=== PATIENT | female | born 1995 | race Caucasian/White ===

== ENCOUNTER 2024-09-25 19:26 | Inpatient (IN) | payer OTHER, SELFPAY ==
[2024-09-25 19:28] VITALS: BMI 35.8
[2024-09-25] MEDS: Lactated Ringers 1,000 ML 50 ML IV (19:45)
[2024-09-25 19:50] VITALS: BP 136/88; PULSE 82; RESP 18; TEMP 37.6
[2024-09-25 20:03] LABS: Absolute Lymphocyte Count 1.31 X10^3/uL (0.83-4.51); Absolute Neutrophil Count 6.1 X10^3/uL (2.0-7.7); Basophil# 0.01 X10^3/uL; Basophil% 0.1 % (0-1); Eosinophil# 0.04 X10^3/uL; Eosinophils% 0.5 % (0-5); Hematocrit 31.3 % (37-47); Hemoglobin 10.7 g/dL (12.0-15.0); Lymphocyte # 1.31 X10^3/ul (0.83-4.51); Lymphocyte % 16.2 % (19-41); Mean Corp Hgb Conc 34.2 g/dL (32-36); Mean Corpuscular Hgb 31.1 pg (27.0-32.0); Mean Platelet Vol. 11.6 fl (6.2-12.0); Monocyte% 7.4 % (0-10); NRBC Flagged by Analyzer 0 % (0-5); Neutrophil # 6.11 X10^3/uL (2.7-7.7); Neutrophil % 75.4 % (47-70); Platelet Count 177 K/mm3 (150-450); RBC Distribution Width CV 12.7 % (11.6-14.6); RBC Distribution Width SD 41.3 fl (35.1-43.9); Red Blood Count 3.44 M/mm3 (4.2-5.4); White Blood Count 8.1 K/mm3 (4.4-11.0)
--- NOTE | 2024-09-25 20:09 | PCM.HP.OB ---
HPI - General General Date of Admission: 09/25/24 Date of Service: 09/25/24 Chief Complaint: induction of labor HPI Narrative ALBERTO MARTINEZ, is a 29 F who presents @ 41 weeks presents for induction of labor. Denies ctx/vb/lof. Good FM. Maternal Data Information Final GENNA: 09/18/24 Gestational age: 41 0/7 weeks PFSH PFSH Home Medications ?Medication ?Instructions ?Recorded ?Last Taken ?Type aspirin 81 mg tablet,delayed 81 mg PO DAILY 09/25/24 09/25/24 15:30 History release vit no.95-ferrous 1 tab PO DAILY 09/25/24 09/25/24 15:30 History fumarate 28 mg-folic acid 800 mcg tablet () Allergy/AdvReac Type Severity Reaction Status Date / Time No Known Allergies Allergy Verified 09/25/24 19:47 Social History Smoking Status: Never smoker History Elective abortions Hx Para 0 Spontaneous abortions Hx # Term Pregnancies Ectopic pregnancies Hx # Pregnancies Multiple births # of living children ROS Constitutional Constitutional: Denies fatigue, fever(s) or malaise Eyes Eyes: Denies change in vision ENT HEENT: Denies dizziness or headache(s) Cardiovascular Cardiovascular: Denies chest pain, dyspnea or lightheadedness Respiratory/Chest Respiratory/Chest: Denies cough or dyspnea Gastrointestinal Gastrointestinal: Denies change in bowel habits Genitourinary Genitourinary: Denies burning urination or genital lesions Integumentary Integumentary: Denies rash Neurologic Neurologic: Denies confusion, dizziness, headache(s), numbness or weakness Vital Signs Vital Signs Vital Signs: 09/25/24 19:50 09/25/24 19:50 09/25/24 19:50 Temperature 99.7 F H Pulse Rate 82 Respiratory Rate Blood Pressure 136/88 H BP Systolic 136 BP Diastolic 88 09/25/24 19:50 Temperature Pulse Rate Respiratory Rate 18 Blood Pressure BP Systolic BP Diastolic Weight Weight: 83.2 kg Body Mass Index (BMI) 35.8 Physical Exam Narrative cervix 4/75/-2, mid position and medium consistency Const alert and no apparent distress General Appearance: cooperative HEENT normocephalic Resp normal respiratory effort Cardio regular rate GI soft to palpation GI Narrative: gravid, nontender, appropriate for gestational age Extremity no calf tenderness General Extremity: edema Skin no wounds Rashes: No rashes noted Psych activity/motor behavior normal Labs Labs Labs: Blood Type Pending Antibody Screen Pending Hct 31.3 % (37-47) L Hgb 10.7 g/dL (12.0-15.0) L Syphilis Total Ab Pending Assessment & Plan (1) 41 weeks gestation of : PLAN: EFW < 4500 gm and pelvis clinically adequate for vaginal delivery. Patient did not have dinner. Ok to have small meal now then start pitocin at 10 pm. May use routine pain control measures as needed (2) High-risk in third trimester: (3) Labor, failed, induction medical:
[2024-09-25 20:42] LABS: Syphilis Antibodies Nonreactive (Nonreactive)
[2024-09-25] MEDS: Oxytocin 15 Units/NS 250ml 15 UNITS/250 ML IV.SOLN 2 UNITS IV (22:07)
[2024-09-25 22:12] VITALS: BP 135/85; PULSE 72; RESP 18; TEMP 37.3
[2024-09-25 23:09] VITALS: RESP 16; TEMP 36.7
[2024-09-25 23:10] VITALS: BP 135/78; PULSE 76
[2024-09-26] VITALS (53 sets, daily range): BP systolic 99–149; BP diastolic 51–106; PULSE 70–181; RESP 13–20; TEMP 36–37.7; O2SAT 82–100
[2024-09-26 01:53] LABS: ROM Internal Control Test YES-OK TO RESULT pt. (Internal QC)
[2024-09-26 01:54] LABS: ROM Patient Test POSITIVE (Negative)
[2024-09-26 01:55] LABS: Record Kit Lot#, ROM+ K3358
[2024-09-26] MEDS: Lactated Ringers 1,000 ML 999 ML IV (02:10)
[2024-09-26] MEDS: Labetalol 200 MG Tablet PO (02:15)
[2024-09-26] MEDS: fentaNYL-bupivacaine (epidural) 100 ML BAG EPIDURAL ×2 (03:10→07:24)
[2024-09-26 03:36] LABS: Hematocrit 35.4 % (37-47); Mean Corp Hgb Conc 33.9 g/dL (32-36); Mean Corpuscular Hgb 30.8 pg (27.0-32.0); Mean Corpuscular Volume 90.8 fL (81-99); Mean Platelet Vol. 11.7 fl (6.2-12.0); Platelet Count 188 K/mm3 (150-450); RBC Distribution Width CV 12.6 % (11.6-14.6); RBC Distribution Width SD 41.1 fl (35.1-43.9); White Blood Count 9.7 K/mm3 (4.4-11.0)
[2024-09-26 03:59] LABS: AST(SGOT) 17 U/L (<=31); Alanine Aminotransfer ALT/SGPT 11 U/L (<=34); EST Glomerular Filtration Rate 128 (>60); Estimated Creatinine Clearance 155.91 ml/min (50-250)
[2024-09-26 04:12] LABS: Prothrombin Time (Protime)PT. 13.4 SECONDS (11.7-14.9)
[2024-09-26 04:13] LABS: Partial Thromboplast Time 28.9 Seconds (24.1-36.2)
[2024-09-26 04:40] LABS: Protein, Urine (Random) 15.3 mg/dL (0.0-12.0); Protein:Creat Ratio 586 mg/g CRE (0-200)
[2024-09-26 04:59] LABS: LDH 184 U/L (84-246); Uric Acid 3.9 mg/dL (2.6-6.0)
[2024-09-26] MEDS: Ondansetron 4 MG/2 ML Vial IV ×2 (08:28→19:24)
--- NOTE | 2024-09-26 09:16 | PCM.PN.BLA ---
Progress Note I arrived on unit due to patient having prolonged FHR deceleration to 50s (approximately 8min). upon arrival FHR back to baseline 115-120bpm. Pt in hands and knees. will plan to recheck patient and if complete will start pushing. Pitocin has been off.
[2024-09-26] MEDS: Lactated Ringers 1,000 ML 200 ML IV (09:35)
--- OUTSIDE RECORDS SUMMARY | 2024-09-26 09:44 | XMS RPT_ITS | CCD ---
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 Name Role Phone Unavailable Primary Care Provider Unavailabl e Care Physician, No Primary Primary Care Unava ilable Vanesa Gonzales Admitting Unavailable Vanesa Gonzales Attending Unavailable Vanesa Gonzales Referring Unavailable IVONNE PALENCIA Attending Unavailable IVONNE PALENCIA Referring Unavailable VANESA GONZALES Referring Unavailable IVONNE PALENCIA Attending Unavailable GITA JAIMES Attending Unavail able VANESA GONZALES Referring Unavailable IVONNE PALENCIA Referring Unavailable IVONNE PALENCIA Attending Unavailable KAYLI BECK Attending Unavailable KAYLI BECK Attending Unavailable GITA JAIMES Attending Unavail able SARAH BELL Attending Unavailable GHANSHYAM MILLAN Attending Unavailable DEBBIE ENGLAND Attending Unavailable DEBBIE ENGLAND Referring Unavailable Medications Current Medications Medication Drug Class(es) Dates Sig (Normalized) Sig (Original) aspirin 81 mg delayed release oral tablet (18 sources) Platelet Aggregation Inhibitor, Nonsteroidal Anti-inflammatory Drug Start: 06-05-2024 take 1 tablet by mouth once daily doxylamine succinate 25 mg oral tablet (7 sources) Start: 06-05-2024 End: 07-05-2024 take 1 tablet by mouth once daily at bedtime doxylamine 25 mg tab Take 1 tablet by mouth daily at bedtime. 30 tablet 06/05/2024 07/05/2024 Active PNV no.95/ferrous fum/folic ac ( ORAL) (18 sources) PNV no.95/ferrou s fum/folic ac ( ORAL) Take by mouth. Active Problems Active Problems Problem Classification Problem Date Documented Date Episodic/Chronic Cardiac and circulatory congenital anomalies (20 sources) Ventricular septal defect; Translations: [Ventricular septal defect] Onset: 06-05-2024 06-05-2024 Chronic Diabetes or abnormal glucose tolerance complicating ; childbirth; or the puerperium (14 sources) Abnormal glucose level; Translations: [Abnormal glucose complicating ] Onset: 07-03-2024 Resolved: 08-22-2024 07-03-2024 Episodic Immunizations and screening for infectious disease (7 sources) Patient encounter status; Translations: [Encounter for screening for human papillomavirus (HPV)] 06-07-2024 Episodic Other complications of (20 sources) Obesity; Translations: [Obesity complicating , unspecified trimester] Onset: 06-05-2024 06-05-2024 Chronic Other complications of (1 source) Maternal obesity complicating , childbirth and the puerperium, antepartum; Translations: [Obesity complicating , second trimester] 06-13-2024 Chronic Other complications of (1 source) Obesity complicating , unspecified trimester; Translations: [Obesity in (HCC)] Onset: 06-07-2024 Chronic Other complications of (20 sources) High risk ; Translations: [Supervision of high risk , unspecified, second trimester] Onset: 06-05-2024 06-05-2024 Episodic Other complications of (20 sources) Late entry into care; Translations: [Supervision of with insufficient care, unspecified trimester] Onset: 06-07-2024 06-07-2024 Episodic Other complications of (1 source) Supervision of high risk , unspecified, third trimester; Translations: [Supervision of high risk in third trimester (HCC)] Onset: 08-22-2024 Episodic Other complications of (2 sources) Supervision of high risk , unspecified, unspecified trimester; Translations: [Supervision of high risk , antepartum (HCC)] Onset: 07-03-2024 Episodic Other female genital disorders (1 source) Vaginal discharge; Translations: [Other specified noninflammatory disorders of vagina] 06-05-2024 Episodic Other screening for suspected conditions (not mental disorders or infectious disease) (2 sources) Cancer cervix screening status; Translations: [Encounter for screening for malignant neoplasm of cervix] Onset: 07-03-2024 06-07-2024 Episodic Residual codes; unclassified (1 source) Gestation period, 26 weeks; Translations: [26 weeks gestation of ] 06-13-2024 Episodic Residual codes; unclassified (2 sources) Gestation period, 31 weeks; Translations: [31 weeks gestation of ] 07-17-2024 Episodic Residual codes; unclassified (1 source) Gestation period, 32 weeks; Translations: [32 weeks gestation of ] 07-30-2024 Episodic Residual codes; unclassified (1 source) Gestation period, 35 weeks; Translations: [35 weeks gestation of ] 08-16-2024 Episodic Residual codes; unclassified (1 source) Gestation period, 36 weeks; Translations: [36 weeks gestation of ] 08-22-2024 Episodic Residual codes; unclassified (1 source) Gestation period, 38 weeks; Translations: [38 weeks gestation of ] 09-04-2024 Episodic Residual codes; unclassified (1 source) Gestation period, 40 weeks; Translations: [40 weeks gestation of ] 09-20-2024 Episodic Residual codes; unclassified (1 source) 40 weeks gestation of ; Translations: [40 weeks gestation of (HCC)] Onset: 09-20-2024 Episodic Residual codes; unclassified (1 source) 39 weeks gestation of ; Translations: [39 weeks gestation of (HCC)] Onset: 09-11-2024 Episodic Residual codes; unclassified (1 source) 38 weeks gestation of ; Translations: [38 weeks gestation of (HCC)] Onset: 09-04-2024 Episodic Residual codes; unclassified (1 source) 37 weeks gestation of ; Translations: [37 weeks gestation of (HCC)] Onset: 08-28-2024 Episodic Residual codes; unclassified (1 source) 36 weeks gestation of ; Translations: [36 weeks gestation of (HCC)] Onset: 08-22-2024 Episodic Residual codes; unclassified (1 source) 35 weeks gestation of ; Translations: [35 weeks gestation of (HCC)] Onset: 08-16-2024 Episodic Residual codes; unclassified (1 source) 32 weeks gestation of ; Translations: [32 weeks gestation of (HCC)] Onset: 07-30-2024 Episodic Residual codes; unclassified (1 source) 31 weeks gestation of ; Translations: [31 weeks gestation of (HCC)] Onset: 07-17-2024 Episodic Residual codes; unclassified (1 source) Gestation period, 39 weeks; Translations: [39 weeks gestation of ] 09-11-2024 Episodic Unclassified (18 sources) [facility] Education - COMMON Onset: 06-05-2024 06-05-2024 Unclassified (18 sources) Education - [place] Onset: 06-05-2024 06-05-2024 Past or Other Problems Problem Classification Problem Date Documented Da te Episodic/Chronic Other complications of (19 sources) Gestational age unknown ; Translations: [Encounter for supervision of normal , unspecified, unspecified trimester] Onset: 06-07-2024 06-07-2024 Episodic Other complications of (1 source) Supervision of with insufficient care, unspecified trimester; Translations: [Late care (HCC)] Onset: 06-07-2024 Episodic Other complications of (1 source) Supervision of high risk , unspecified, second trimester; Translations: [Supervision of high risk in second trimester (HCC)] Onset: 06-05-2024 Episodic Other and delivery including normal (2 sources) Encounter for supervision of normal , unspecified, unspecified trimester; Translations: [Encounter for supervision of normal , unspecified, first trimester] Onset: 06-05-2024 Episodic Results Test Name Value Interpretation Reference Range Facil ity URINE OB DIP B/Oon 5 Glucose Ql (U) Negative Neg mg/dL [facility] Interpretation and review of laboratory results Normal [facility] Protein.monoclonal (U) [Mass/Vol] Negative Neg mg/dL [facility] URINE OB DIP B/Oon 5 Glucose Ql (U) Negative Neg mg/dL [facility] Interpretation and review of laboratory results Normal [facility] Protein.monoclonal (U) [Mass/Vol] trace Neg mg/dL [facility] URINE OB DIP B/Oon 5 Glucose Ql (U) Negative Neg mg/dL [facility] Protein.monoclonal (U) [Mass/Vol] trace Neg mg/dL [facility] ROUTINE, GROUP B ST REPTOCOCCUS BY PCRon 08-22-2024 ROUTINE, GROUP B STREPTOCOCCUS BY PCR Not detected [facility] Comment on above: Performed By: #### L [id number] #### [facility] CLIA [id number] [address] [place] [facility] CLIA [id number] [address] [place] [address] [place] URINE OB DIP B/Oon Glucose Ql (U) Negative Neg mg/dL [facility] Interpretation and review of laboratory results Normal [facility] Protein.monoclonal (U) [Mass/Vol] trace Neg mg/dL [facility] Examination level ultrasound on 07-17-2024 [facility] Radiology Study observation (narrative) [facility] GLUCOSE GESTATIONAL, 1 HOURo n 07-04-2024 Glucose 1 Hr post Unsp challenge [Mass/Vol] 170 mg/dL Normal 74-179 [facility] Comment on above: Order Comment: Tanyai sumi Type: FLUID SPECIMEN Ordering Facility: [facility] Address: [address] [place] [address] Result Comment: [facility] [employer] of Obstetricians and Gynecologists (Sonya/David) guidelines state gestational diabetes mellitus is present when 2 or more of the plasma glucose concentrations meet or exceed the following levels: fastin mg/dl, 1 hr: 180 mg/dl, 2 hr: 155 mg/dl, and 3 hr: 140 mg/dl. Performed By: #### L [id number] #### [facility] CLIA [id number] [address] [place] [address] [place] [facility] CLIA [id number] [address] [place] [address] [place] GLUCOSE GESTATIONAL, 2 HOURo n 07-04-2024 Glucose 2 Hr post Unsp challenge [Mass/Vol] 139 mg/dL Normal 74-154 [facility] Comment on above: Order Comment: Speci men Type: FLUID SPECIMEN Ordering Facility: [facility] Address: [address] [place] [address] Result Comment: [facility] Congress of Obstetricians and Gynecologists (Sonya/Nuzhatan) guidelines state gestational diabetes mellitus is present when 2 or more of the plasma glucose concentrations meet or exceed the following levels: fastin mg/dl, 1 hr: 180 mg/dl, 2 hr: 155 mg/dl, and 3 hr: 140 mg/dl. Performed By: #### L [id number] #### [facility] CLIA [id number] [address] [place] [address] [place] [facility] CLIA [id number] [address] [place] [address] GLUCOSE GESTATIONAL, 3 HOURo n 07-04-2024 Glucose 3 Hr post Unsp challenge [Mass/Vol] 117 mg/dL Normal 74-139 [facility] Comment on above: Order Comment: Specfabian jonas Type: BLOOD SPECIMEN Ordering Facility: [facility] Address: [address] [place] [address] Result Comment: [facility] Congress of Obstetricians and Gynecologists (Sonya/David) guidelines state gestational diabetes mellitus is present when 2 or more of the plasma glucose concentrations meet or exceed the following levels: fastin mg/dl, 1 hr: 180 mg/dl, 2 hr: 155 mg/dl, and 3 hr: 140 mg/dl. Performed By: #### T SPN #### [facility] CLIA [id number] [address] [place] [address] STATES [facility] GLUCOSE GESTATIONAL, FASTING on 07-04-2024 Glucose post fast [Mass/Vol] 80 mg/dL Normal 74-94 [facility] Comment on above: Order Comment: Amarilis jonas Type: BLOOD SPECIMENOrdering Facility: [facility] Address: [address] [place] [address] Result Comment: [facility] Congress of Obstetricians and Gynecologists (Sonya/Nuzhatan) guidelines state gestational diabetes mellitus is present when 2 or more of the plasma glucose concentrations meet or exceed the following levels: fastin mg/dl, 1 hr: 180 mg/dl, 2 hr: 155 mg/dl, and 3 hr: 140 mg/dl. Performed By: #### G TGS ####[facility] [id number] [address] [id number] [address] [place] CBC W Auto Differential pane l (Bld)on 07-03-2024 Basophils (Bld) [#/Vol] 10*3/uL Normal <0.11 [facility] Comment on above: Order Comment: Speci men Type: BLOOD SPECIMEN Ordering Facility: [facility] Address: [address] [place] [address] Performed By: #### T SPN #### [facility] CLIA [id number] [address] [place] [address] [place] Basophils/100 WBC (Bld) 0.2 % [facility] Comment on above: Order Comment: Speci men Type: BLOOD SPECIMEN Ordering Facility: [facility] Address: [address] [place] [address] Performed By: #### T SPN #### [facility] CLIA [id number] [address] [place] [address] [place] Differential cell count method Nom (Bld) Auto [facility] Comment on above: Order Comment: Speci men Type: BLOOD SPECIMEN Ordering Facility: [facility] Address: [address] [place] [address] Performed By: #### T SPN #### [facility] CLIA [id number] [address] [place] [address] [place] Eosinophils (Bld) [#/Vol] 0.22 10*3/uL Normal <0.46 [facility] Comment on above: Order Comment: Speci men Type: BLOOD SPECIMEN Ordering Facility: [facility] Address: [address] [place] [address] Performed By: #### T SPN #### [facility] CLIA [id number] [address] [place] [address] [place] Eosinophils/100 WBC (Bld) 2.4 % [facility] Comment on above: Order Comment: Speci men Type: BLOOD SPECIMEN Ordering Facility: [facility] Address: [address] [place] [address] Performed By: #### T SPN #### [facility] CLIA [id number] [address] [place] [address] [place] Erythrocyte distribution width (RBC) [Ratio] 12.7 % Normal 11.5-15.0 [facility] Comment on above: Order Comment: Speci men Type: BLOOD SPECIMEN Ordering Facility: [facility] Address: [address] [place] [address] Performed By: #### T SPN #### [facility] CLIA [id number] [address] [place] [address] [place] Hematocrit (Bld) [Volume fraction] 33.8 % Low 36.0-46.0 [facility] Comment on above: Order Comment: Speci men Type: BLOOD SPECIMEN Ordering Facility: [facility] Address: [address] [place] [address] Performed By: #### T SPN #### [facility] CLIA [id number] [address] [place] [address] [place] Hemoglobin (Bld) [Mass/Vol] 11.5 g/dL Normal 11.5-15.5 [facility] Comment on above: Order Comment: Speci men Type: BLOOD SPECIMEN Ordering Facility: [facility] Address: [address] [place] [address] Performed By: #### T SPN #### [facility] CLIA [id number] [address] [place] [address] [place] Immature granulocytes (Bld) [#/Vol] 0.03 10*3/uL Normal <0.10 [facility] Comment on above: Order Comment: Speci men Type: BLOOD SPECIMEN Ordering Facility: [facility] Address: [address] [place] [address] Performed By: #### T SPN #### [facility] CLIA [id number] [address] [place] [address] [place] Immature granulocytes/100 WBC (Bld) 0.3 % [facility] Comment on above: Order Comment: Speci men Type: BLOOD SPECIMEN Ordering Facility: [facility] Address: [address] [place] [address] Performed By: #### T SPN #### [facility] CLIA [id number] [address] [place] [address] [place] Lymphocytes (Bld) [#/Vol] 1.45 10*3/uL Normal 1.00-4.00 [facility] Comment on above: Order Comment: Speci men Type: BLOOD SPECIMEN Ordering Facility: [facility] Address: [address] [place] [address] Performed By: #### T SPN #### [facility] CLIA [id number] [address] [place] [address] [place] Lymphocytes/100 WBC (Bld) 15.7 % [facility] Comment on above: Order Comment: Speci men Type: BLOOD SPECIMEN Ordering Facility: [facility] Address: [address] [place] [address] Performed By: #### T SPN #### [facility] CLIA [id number] [address] [place] [address] [place] MCH (RBC) [Entitic mass] 31.4 pg Normal 26.0-34.0 [facility] Comment on above: Order Comment: Speci men Type: BLOOD SPECIMEN Ordering Facility: [facility] Address: [address] [place] [address] Performed By: #### T SPN #### [facility] CLIA [id number] [address] [place] [address] [place] MCHC (RBC) [Mass/Vol] 34.0 g/dL Normal 30.5-36.0 [facility] Comment on above: Order Comment: Speci men Type: BLOOD SPECIMEN Ordering Facility: [facility] Address: [address] [place] [address] Performed By: #### T SPN #### [facility] CLIA [id number] [address] [place] [address] [place] MCV (RBC) [Entitic vol] 92.3 fL Normal 80.0-100.0 [facility] Comment on above: Order Comment: Speci men Type: BLOOD SPECIMEN Ordering Facility: [facility] Address: [address] [place] [address] Performed By: #### T SPN #### [facility] CLIA [id number] [address] [place] [address] [place] Monocytes (Bld) [#/Vol] 0.65 10*3/uL Normal <0.87 [facility] Comment on above: Order Comment: Speci men Type: BLOOD SPECIMEN Ordering Facility: [facility] Address: [address] [place] [address] Performed By: #### T SPN #### [facility] CLIA [id number] [address] [place] [address] [place] Monocytes/100 WBC (Bld) 7.0 % [facility] Comment on above: Order Comment: Speci men Type: BLOOD SPECIMEN Ordering Facility: [facility] Address: [address] [place] [address] Performed By: #### T SPN #### [facility] CLIA [id number] [address] [place] [address] [place] Neutrophils (Bld) [#/Vol] 6.87 10*3/uL Normal 1.45-7.50 [facility] Comment on above: Order Comment: Speci men Type: BLOOD SPECIMEN Ordering Facility: [facility] Address: [address] [place] [address] Performed By: #### T SPN #### [facility] CLIA [id number] [address] [place] [address] [place] Neutrophils/100 WBC (Bld) 74.4 % [facility] Comment on above: Order Comment: Speci men Type: BLOOD SPECIMEN Ordering Facility: [facility] Address: [address] [place] [address] Performed By: #### T SPN #### [facility] CLIA [id number] [address] [place] [address] [place] Nucleated RBC (Bld) [#/Vol] 10*3/uL Normal <0.01 [facility] Comment on above: Order Comment: Speci men Type: BLOOD SPECIMEN Ordering Facility: [facility] Address: [address] [place] [address] Performed By: #### T SPN #### [facility] CLIA [id number] [address] [place] [address] [place] Nucleated RBC/100 WBC (Bld) [Ratio] 0.0 /100 WBC [facility] Comment on above: Order Comment: Speci men Type: BLOOD SPECIMEN Ordering Facility: [facility] Address: [address] [place] [address] Performed By: #### T SPN #### [facility] CLIA [id number] [address] [place] [address] [place] Platelet mean volume (Bld) [Entitic vol] 10.0 fL Normal 9.0-12.7 [facility] Comment on above: Order Comment: Speci men Type: BLOOD SPECIMEN Ordering Facility: [facility] Address: [address] [place] [address] Performed By: #### T SPN #### [facility] CLIA [id number] [address] [place] [address] [place] Platelets (Bld) [#/Vol] 257 10*3/uL Normal 150-400 [facility] Comment on above: Order Comment: Speci men Type: BLOOD SPECIMEN Ordering Facility: [facility] Address: [address] [place] [address] Performed By: #### T SPN #### [facility] CLIA [id number] [address] [place] [address] [place] RBC (Bld) [#/Vol] 3.66 10*6/uL Low 3.90-5.20 [facility] Comment on above: Order Comment: Speci men Type: BLOOD SPECIMEN Ordering Facility: [facility] Address: [address] [place] [address] Performed By: #### T SPN #### [facility] CLIA [id number] [address] [place] [address] [place] WBC (Bld) [#/Vol] 9.24 10*3/uL Normal 3.70-11.00 [facility] Comment on above: Order Comment: Speci men Type: BLOOD SPECIMEN Ordering Facility: [facility] Address: [address] [place] [address] Performed By: #### T SPN #### [facility] CLIA [id number] [address] [place] [address] [place] GESTATIONAL GLUCOSE SCREEN, 1-HOUR, 50 GRAM, NON-FASTINGOrdered By: Odalis Escobar on 07-03-2024 Glucose [Mass/Vol] 152 mg/dL High 74 - 134 mg/dL [facility] Comment on above: [place] [employer]stetricians and Gynecologists (Sonya/Nuzhatan) guidelines state a gestational diabetes mellitus positive screen is made, in women not previously diagnosed with overt diabetes, when the 1 hr plasma glucose level is equal to or above 140 mg/dL. [facility] Supervisor [employer] [facility] [place] recommends a 135 mg/dL cutoff. Interpretation and review of laboratory results Abnormal [facility] GESTATIONAL GLUCOSE SCREEN, 1-HOUR, 50 GRAM, NON-FASTINGon 07-03-2024 Glucose [Mass/Vol] 152 mg/dL High 74-134 [facility] Comment on above: Order Comment: Speci men Type: FLUID SPECIMEN Ordering Facility: [facility] Address: [address] [place] [address] Result Comment: [facility] Congress of Obstetricians and Gynecologists (Hassan/[place]an[place]) guidelines state a gestational diabetes mellitus positive screen is made, in women not previously diagnosed with overt diabetes, when the 1 hr plasma glucose level is equal to or above 140 mg/dL. [facility] Supervisor [employer] [facility] [place] recommends a 135 mg/dL cutoff. Performed By: #### L [id number] #### [facility] CLIA [id number] [address] [place] [address] LAB CLIA [id number] [address] [place] [address] [place] Reagin and Treponema pallidu m IgG and IgM [Interp]on 07-03-2024 T. pallidum IgG+IgM IA Ql (S) Non-Reactive Normal Non[facility] Comment on above: Order Comment: Speci men Type: FLUID SPECIMEN Ordering Facility: [facility] Address: [address] [place] [address] Performed By: #### L [id number] #### [facility] CLIA [id number] [address] [place] [address] LAB CLIA [id number] [address] [place] [address] [place] Reagin+T pallidum IgG+IgM Se rPl-Impon 07-03-2024 Reagin and Treponema pallidum IgG and IgM [Interp] Cannot exclude recent Treponemal infection if specimen collected within 7-10 days after appearance of suspect lesions or 2-3 weeks after an exposure. Clinical correlation is required. [facility] Comment on above: Order Comment: Speci men Type: FLUID SPECIMEN Ordering Facility: [facility] Address: [address] [place] [address] Performed By: #### L [id number] #### [facility] CLIA [id number] [address] [place] [address] LAB CLIA [id number] [address] [place] [address] [place] CNPDanyelle 06-14-2024 CNPN Telephone ([facility]) BEBE FLORES ([id number]) 1995 F Date Time Provider Department 06/14/24 VANESA GONZALES OBGYWLiliana During your visit today, we recorded the following information about you: Flor Lucero RN 06/14/2024 2:34 PM Signed Vaneas Gonzales MD 06/14/2024 11:10 AM EST Anatomy ultrasound reviewed. No abnormalities identified. REPEAT US in 4-6 weeks. Please assist w/ scheduling if not done. Please place copy in ob chart. MD Channing Greene Tara, RN 06/14/2024 2:34 PM Signed 11:34am US to [facility] 06/14/24 1st copy to [facility] 06/14/24 OB ultrasound order pended-please file and will contact Pt to get scheduled in 4-6 weeks as advised. TERELL Morgan Tara, RN 06/14/2024 2:34 PM Signed Left message for patient to call office. TERELL Morgan Annalee, LPN 06/14/2024 3:19 PM Signed Patient scheduled Allergies As of Date: 06/14/2024 (No Known Allergies) Date Reviewed: 06/05/2024 Reviewed by: Marco A Menjivar MA - Fully Assessed Reason for Visit: Needs US AND OB appt scheduled [Other] Prescriptions as of 06/14/2024 - aspirin, enteric coated (ECOTRIN LOW STRENGTH) 81 mg EC tablet Take 1 tablet by mouth once daily. - PNV no.95/ferrous fum/folic ac ( ORAL) Take by mouth. - doxylamine 25 mg tab Take 1 tablet by mouth daily at bedtime. Problem List As Of Date 06/14/2024 Noted Resolved VSD (ventricular septal defect) [Q21.0] Supervision of high risk in second tr*06/05/2024 Obesity in [O99.210] 06/05/2024 with fetus of unknown gestational age*06/07/2024 Late care [O09.30] 06/07/2024 Encounter Status:Closed by FLOR LUCERO on 06/14/24 [facility] Examination level ultrasound on 06-13-2024 Indication Detailed anatomic survey Late care, dating, Maternal obesity, BMI >30 Impression REMOTE READ The patient is referred for a detailed anatomic survey. - Single, live, intrauterine . - biometry is consistent with the established gestational age. - No malformations were visualized on a detailed anatomic survey, although some anatomical structures were suboptimally seen as detailed below due to late gestational age. - The amniotic fluid volume is normal amount. - The placenta is posterior, fundal. - Not all structural malformations can be detected by ultrasound examination. Recommendations Growth in four weeks Maternal Assessment Height 152 cm Height (ft) 5 ft Physical Exam Initial weight (lb) 160 lb Initial BMI 31.25 kg/m Maternal assessment other: 1 Para 0 Method Transabdominal ultrasound examination. View: Suboptimal view: limited by late gestational age. Kan . Number of fetuses: 1 Dating GA by prior assessment 26 w + 1 d GENNA by prior assessment: 09/18/2024 Ultrasound examination on: 06/13/2024 GA by U/S based upon: AC, BPD, Femur, HC GA by U/S 26 w + 4 d GENNA by U/S: 09/15/2024 Assigned: based on stated GENNA, selected on 06/13/2024 Assigned GA 26 w + 1 d Assigned GENNA: 09/18/2024 General Evaluation Cardiac activity present. FHR 148 bpm. movements: present. Presentation: cephalic Placenta: Placental site: posterior, fundal Umbilical cord: Cord vessels: 3 vessel cord Amniotic fluid: Amount of AF: normal amount. MVP 5.5 cm. NANCY 15.6 cm. Q1 2.8 cm, Q2 5.5 cm, Q3 3.3 cm, Q4 4.0 cm Growth Overview Exam date GA BPD (mm) HC (mm) AC (mm) FL (mm) HL (mm) EFW (g) 06/13/2024 26w 1d 63.1 21% 249.2 65% 231.7 81% 47.7 57% 46.4 81% 1002 71% Biometry Standard BPD 63.1 mm 25w 4d 21% Hadlock OFD 91.4 mm 27w 1d 89% Nicolaides HC 249.2 mm 26w 5d 65% Chhaya Cerebellum tr 31.3 mm 26w 6d 74% Hill AC 231.7 mm 27w 4d 81% Hadlock Femur 47.7 mm 26w 1d 57% Chhaya Humerus 46.4 mm 27w 3d 81% Chahya EFW 1,002 g 26w 4d 71% Hadlock EFW (lb) 2 lb EFW (oz) 3 oz EFW by: Hadlock (HC-AC-FL) Extended [employer] Worker 5.8 mm Extremities / Bony Struc FL / HC 0.19 Other Structures FHR 148 bpm Anatomy Cranium: normal Lateral ventricles: normal Choroid plexus: normal Midline falx: normal Cavum septi pellucidi: normal Cerebellum: normal Cisterna magna: normal Head / Neck Vermis: suboptimally visualized Neck: normal Nuchal fold: suboptimally visualized Lips: normal Profile: normal Nose: normal Face Maxilla: normal Mandible: normal Orbits: normal Lens: normal 4-chamber view: normal RVOT view: normal LVOT view: normal 3-vessel view: normal 9-mzkhlp-hintmtf view: normal Heart / Thorax Situs: situs solitus (normal) Aortic arch view: normal SVC: normal IVC: normal Cardiac axis: normal Rt lung: normal Lt lung: normal Diaphragm: normal Cord insertion: normal Stomach: normal Kidneys: normal Bladder: normal Genitals: normal Abdomen Abdom. wall: normal Cervical spine: normal Thoracic spine: normal Lumbar spine: normal Sacral spine: normal Arms: normal Legs: normal Rt upper arm: normal Rt forearm: normal Rt hand: normal Rt fingers: normal Lt upper arm: normal Lt forearm: normal Lt hand: normal Lt fingers: normal Rt upper leg: normal Rt lower leg: normal Rt foot: normal Lt upper leg: normal Lt lower leg: normal Lt foot: normal Gender: Unspecified Wants to know sex: no Maternal Structures Uterus / Cervix Uterus: Visualized Cervix: Not visualized Ovaries / Tubes / Adnexa Rt ovary: Not visualized Lt ovary: Visualized Performed By: Sugar Garcia, ANN, RVT Read By: Evelyn Manjarrez M.D. MATERNAL MEDICINE [facility] Radiology Study observation (narrative) [facility] BACTERIAL CULTURE, URINEOrde red By: Emani Sheth on 06-06-2024 Bacteria identified Cx Nom (U) >=100,000 CFU/ml Normal urogenital cristóbal [facility] Bacteria identified Cx Nom ( U)Ordered By: Emani Sheth on 06-06-2024 [facility] BACTERIAL VAGINOSIS NAATon 0 06-05-2024 Interpretation and review of laboratory results Normal [facility] Lactobacillus crispatus+gasseri+j ensenii + Gardnerella vaginalis + Atopobium vaginae rRNA VIVIAN+probe Ql (Vag fld) Not detected Not detected [facility] Lactobacillus crispatus+gasseri+j ensenii + Gardnerella vaginalis + Atopobium vaginae rRNA VIVIAN+probe Ql (Vag fld) Not detected Normal [facility] Comment on above: Order Comment: Speci men Type: FLUID SPECIMEN Ordering Facility: [facility] Address: [address] [place] [address] Performed By: #### L [id number] #### [facility] CLIA [id number] [address] [place] [address] [place] [facility] CLIA [id number] [address] [place] [address] [place] Bacteria Ur Culton Bacteria identified Cx Nom (U) ORGANISM ID: 1 >=100,000 CFU/ml Normal urogenital cristóbal [facility] Comment on above: Performed By: #### L [id number] #### [facility] CLIA [id number] [address] [place] [address] [place] [facility] CLIA [id number] [address] [place] [address] [place] C. trachomatis+N. gonorrhoea e DNA VIVIAN+probe Ql (Unsp spec)on 06-05-2024 C. trachomatis rRNA VIVIAN+probe Ql (Unsp spec) Not detected Not detected [facility] Interpretation and review of laboratory results Normal [facility] N. gonorrhoeae rRNA VIVIAN+probe Ql (Unsp spec) Not detected Not detected [facility] This FDA-approved assay has been modified to accept rectal swabs self-collected in a healthcare setting. For self-collected rectal swabs, the test was developed and its performance characteristics determined by the [facility]'s [facility] Pathology and Laboratory Medicine [place] ([facility]). It has not been cleared or approved by the FDA. -[facility] is regulated under CLIA as qualified to perform high-complexity testing. This test is used for clinical purposes. It should not be regarded as investigational or for research. [facility] C. trachomatis rRNA VIVIAN+probe Ql (Unsp spec) Not detected Normal Not detected [facility] Comment on above: Order Comment: Speci men Type: BLOOD SPECIMEN Ordering Facility: [facility] Address: [address] [place] [address] Performed By: #### T SPN #### [facility] [id number] [address] [place] [address] [place] N. gonorrhoeae rRNA VIVIAN+probe Ql (Unsp spec) Not detected Normal Not detected [facility] Comment on above: Order Comment: Speci men Type: BLOOD SPECIMEN Ordering Facility: [facility] Address: [address] [place] [address] Performed By: #### T SPN #### [facility] [id number] [address] [place] [address] [place] JACOBY/TRICHOMONAS NAATon 0 06-05-2024 C. glabrata RNA VIVIAN+probe Ql (Vag fld) Not detected Not detected [facility] Jacoby sp DNA VIVIAN+probe Ql (Vag fld) Not detected Not detected [facility] Comment on above: The Jacoby species group target includes C. albicans, C. tropicalis, C. parapsilosis, and C. dubliniensis. Interpretation and review of laboratory results Normal [facility] T. vaginalis DNA VIVIAN+probe Ql (Unsp spec) Not detected Not detected [facility] C. glabrata RNA VIVIAN+probe Ql (Vag fld) Not detected Normal Not detected [facility] Comment on above: Order Comment: Speci men Type: BLOOD SPECIMEN Ordering Facility: [facility] Address: [address] [place] [address] Performed By: #### T SPN #### [facility] CLIA [id number] [address] [place] [address] [place] Jacoby sp DNA VIVIAN+probe Ql (Vag fld) Not detected Normal Not detected [facility] Comment on above: Order Comment: Speci men Type: BLOOD SPECIMEN Ordering Facility: [facility] Address: [address] [place] [address] Result Comment: The Jacoby species group target includes C. albicans, C. tropicalis, C. parapsilosis, and C. dubliniensis. Performed By: #### T SPN #### [facility] CLIA [id number] [address] [place] [address] [place] T. vaginalis DNA VIVIAN+probe Ql (Unsp spec) Not detected Normal Not detected [facility] Comment on above: Order Comment: Speci men Type: BLOOD SPECIMEN Ordering Facility: [facility] Address: [address] [place] [address] Performed By: #### T SPN #### [facility] CLIA [id number] [address] [place] [address] [place] CBC W Auto Differential pane l (Bld)on 06-05-2024 Basophils (Bld) [#/Vol] 10*3/uL Normal <0.11 [facility] Comment on above: Order Comment: Speci men Type: BLOOD SPECIMEN Ordering Facility: [facility] Address: [address] [place] [address] Performed By: #### 5 7021-8 #### [facility] CLIA [id number] [address] [place] [address] [place] Basophils/100 WBC (Bld) 0.2 % [facility] Comment on above: Order Comment: Speci men Type: BLOOD SPECIMEN Ordering Facility: [facility] Address: [address] [place] [address] Performed By: #### 5 7021-8 #### [facility] CLIA [id number] [address] [place] [address] [place] Differential cell count method Nom (Bld) Auto [facility] Comment on above: Order Comment: Speci men Type: BLOOD SPECIMEN Ordering Facility: [facility] Address: [address] [place] [address] Performed By: #### 5 7021-8 #### [facility] CLIA [id number] [address] [place] [address] [place] Eosinophils (Bld) [#/Vol] 0.10 10*3/uL Normal <0.46 [facility] Comment on above: Order Comment: Speci men Type: BLOOD SPECIMEN Ordering Facility: [facility] Address: [address] [place] [address] Performed By: #### 5 7021-8 #### [facility] CLIA [id number] [address] [place] [address] [place] Eosinophils/100 WBC (Bld) 1.1 % [facility] Comment on above: Order Comment: Speci men Type: BLOOD SPECIMEN Ordering Facility: [facility] Address: [address] [place] [address] Performed By: #### 5 7021-8 #### [facility] CLIA [id number] [address] [place] [address] [place] Erythrocyte distribution width (RBC) [Ratio] 13.0 % Normal 11.5-15.0 [facility] Comment on above: Order Comment: Speci men Type: BLOOD SPECIMEN Ordering Facility: [facility] Address: [address] [place] [address] Performed By: #### 5 7021-8 #### [facility] CLIA [id number] [address] [place] [address] [place] Hematocrit (Bld) [Volume fraction] 34.3 % Low 36.0-46.0 [facility] Comment on above: Order Comment: Speci men Type: BLOOD SPECIMEN Ordering Facility: [facility] Address: [address] [place] [address] Performed By: #### 5 7021-8 #### [facility] CLIA [id number] [address] [place] [address] [place] Hemoglobin (Bld) [Mass/Vol] 11.7 g/dL Normal 11.5-15.5 [facility] Comment on above: Order Comment: Speci men Type: BLOOD SPECIMEN Ordering Facility: [facility] Address: [address] [place] [address] Performed By: #### 5 7021-8 #### [facility] CLIA [id number] [address] [place] [address] [place] Immature granulocytes (Bld) [#/Vol] 0.04 10*3/uL Normal <0.10 [facility] Comment on above: Order Comment: Speci men Type: BLOOD SPECIMEN Ordering Facility: [facility] Address: [address] [place] [address] Performed By: #### 5 7021-8 #### [facility] CLIA [id number] [address] [place] [address] [place] Immature granulocytes/100 WBC (Bld) 0.4 % [facility] Comment on above: Order Comment: Speci men Type: BLOOD SPECIMEN Ordering Facility: [facility] Address: [address] [place] [address] Performed By: #### 5 7021-8 #### [facility] CLIA [id number] [address] [place] [address] [place] Lymphocytes (Bld) [#/Vol] 1.34 10*3/uL Normal 1.00-4.00 [facility] Comment on above: Order Comment: Speci men Type: BLOOD SPECIMEN Ordering Facility: [facility] Address: [address] [place] [address] Performed By: #### 5 7021-8 #### [facility] CLIA [id number] [address] [place] [address] [place] Lymphocytes/100 WBC (Bld) 14.8 % [facility] Comment on above: Order Comment: Speci men Type: BLOOD SPECIMEN Ordering Facility: [facility] Address: [address] [place] [address] Performed By: #### 5 7021-8 #### [facility] CLIA [id number] [address] [place] [address] [place] MCH (RBC) [Entitic mass] 31.3 pg Normal 26.0-34.0 [facility] Comment on above: Order Comment: Speci men Type: BLOOD SPECIMEN Ordering Facility: [facility] Address: [address] [place] [address] Performed By: #### 5 7021-8 #### [facility] [id number] [address] [place] [address] [place] MCHC (RBC) [Mass/Vol] 34.1 g/dL Normal 30.5-36.0 [facility] Comment on above: Order Comment: Speci men Type: BLOOD SPECIMEN Ordering Facility: [facility] Address: [address] [place] [address] Performed By: #### 5 7021-8 #### [facility] [id number] [address] [place] [address] [place] MCV (RBC) [Entitic vol] 91.7 fL Normal 80.0-100.0 [facility] Comment on above: Order Comment: Speci men Type: BLOOD SPECIMEN Ordering Facility: [facility] Address: [address] [place] [address] Performed By: #### 5 7021-8 #### [facility] [id number] [address] [place] [address] [place] Monocytes (Bld) [#/Vol] 0.55 10*3/uL Normal <0.87 [facility] Comment on above: Order Comment: Speci men Type: BLOOD SPECIMEN Ordering Facility: [facility] Address: [address] [place] [address] Performed By: #### 5 7021-8 #### [facility] CLIA [id number] [address] [place] [address] [place] Monocytes/100 WBC (Bld) 6.1 % [facility] Comment on above: Order Comment: Speci men Type: BLOOD SPECIMEN Ordering Facility: [facility] Address: [address] [place] [address] Performed By: #### 5 7021-8 #### [facility] CLIA [id number] [address] [place] [address] [place] Neutrophils (Bld) [#/Vol] 7.03 10*3/uL Normal 1.45-7.50 [facility] Comment on above: Order Comment: Speci men Type: BLOOD SPECIMEN Ordering Facility: [facility] Address: [address] [place] [address] Performed By: #### 5 7021-8 #### [facility] CLIA [id number] [address] [place] [address] [place] Neutrophils/100 WBC (Bld) 77.4 % [facility] Comment on above: Order Comment: Speci men Type: BLOOD SPECIMEN Ordering Facility: [facility] Address: [address] [place] [address] Performed By: #### 5 7021-8 #### [facility] CLIA [id number] [address] [place] [address] [place] Nucleated RBC (Bld) [#/Vol] 10*3/uL Normal <0.01 [facility] Comment on above: Order Comment: Speci men Type: BLOOD SPECIMEN Ordering Facility: [facility] Address: [address] [place] [address] [place] [address] Performed By: #### 5 7021-8 #### [facility] CLIA [id number] [address] [place] [address] [place] Nucleated RBC/100 WBC (Bld) [Ratio] 0.0 /100 WBC [facility] Comment on above: Order Comment: Speci men Type: BLOOD SPECIMEN Ordering Facility: [facility] Address: [address] [place] [address] Performed By: #### 5 7021-8 #### [facility] CLIA [id number] [address] [place] [address] [place] Platelet mean volume (Bld) [Entitic vol] 9.3 fL Normal 9.0-12.7 [facility] Comment on above: Order Comment: Speci men Type: BLOOD SPECIMEN Ordering Facility: [facility] Address: [facility] [place] [address] Performed By: #### 5 7021-8 #### [facility] CLIA [id number] [address] [place] [address] [place] Platelets (Bld) [#/Vol] 249 10*3/uL Normal 150-400 [facility] Comment on above: Order Comment: Speci men Type: BLOOD SPECIMEN Ordering Facility: [facility] Address: [address] [place] [address] Performed By: #### 5 7021-8 #### [facility] CLIA [id number] [address] [place] [address] [place] RBC (Bld) [#/Vol] 3.74 10*6/uL Low 3.90-5.20 [facility] Comment on above: Order Comment: Speci men Type: BLOOD SPECIMEN Ordering Facility: [facility] Address: [address] [place] [address] Performed By: #### 5 7021-8 #### [facility] CLIA [id number] [address] [place] [address] [place] WBC (Bld) [#/Vol] 9.08 10*3/uL Normal 3.70-11.00 [facility] Comment on above: Order Comment: Amarilis jonas Type: BLOOD SPECIMEN Ordering Facility: [facility] Address: [address] [place] [address] Performed By: #### 5 7021-8 #### [facility] CLIA [id number] [address] [place] [address] [place] HBV surface Ag Ql (S)on 05-13 Interpretation and review of laboratory results Normal [facility] HBV surface Ag Ser Qlon 05-13 HBV surface Ag Ql (S) Negative Normal [facility] Comment on above: Order Comment: Amarilis jonas Type: BLOOD SPECIMEN Ordering Facility: [facility] Address: [address] [place] [address] Performed By: #### T SPN #### [facility] CLIA [id number] [address] [place] [address] [place] HCV Ab Ql (S)on 06-05-2024 Interpretation and review of laboratory results Normal [facility] HCV Ab Ser Qlon 06-05-2024 HCV Ab Ql (S) Negative Normal [facility] Comment on above: Order Comment: Amarilis jonas Type: BLOOD SPECIMEN Ordering Facility: [facility] Address: [address] [place] [address] Result Comment: The result suggests no evidence of active infection with Hepatitis C virus. Should recent infection be suspected, repeat testing may be considered 4-6 weeks after this draw. Performed By: #### T SPN #### [facility] CLIA [id number] [address] [place] [address] [place] HEPATITIS B SURFACE ANTIGENo n 06-05-2024 HBV surface Ag Ql (S) Negative Negative [facility] HEPATITIS C ANTIBODY IA WITH CONFIRMATIONon 06-05-2024 HCV Ab Ql (S) Negative Negative [facility] Comment on above: The result suggests no evidence of active infection with Hepatitis C virus. Should recent infection be suspected, repeat testing may be considered 4-6 weeks after this draw. HIGH RISK HUMAN PAPILLOMA SUPRIYA (HPV), PCR FOR DETECTION AND GENOTYPINGon 06-05-2024 HPV 16 Ag Ql (Unsp spec) Not detected Normal Not detected [facility] Comment on above: Order Comment: Speci men Type: BLOOD SPECIMEN Ordering Facility: [facility] Address: [address] [place] [address] Performed By: #### T SPN #### [facility] CLIA [id number] [address] [place] [address] [place] HPV 18 Ag Ql (Unsp spec) Not detected Normal Not detected [facility] Comment on above: Order Comment: Speci men Type: BLOOD SPECIMEN Ordering Facility: [facility] Address: [address] [place] [address] Performed By: #### T SPN #### [facility] CLIA [id number] [address] [place] [address] [place] HPV 31+33+35+39+45+51+5 2+56+58+59+66+68 DNA VIVIAN+probe Ql (Cvx) Not detected Normal Not detected [facility] Comment on above: Order Comment: Speci men Type: BLOOD SPECIMEN Ordering Facility: [facility] Address: [address] [place] [address] Result Comment: High Risk HPV Other Type includes HPV types 31, 33, 35, 39, 45, 51, 52, 56, 58, 59, 66 and 68. Performed By: #### T SPN #### [facility] CLIA [id number] [address] [place] [address] [place] HIV 1+2 Ab IA Qlon HIV 1 and 2 Ab IA.rapid Nom (S/P/Bld) [facility] Comment on above: Test not indicated. HIV 1+2 Ab+HIV1 p24 Ag IA Ql Non-Reactive Nonreactive [facility] HIV immunoassay testing algorithm interpretation (S/P/Bld) [Interp] [facility] Comment on above: No evidence of HIV-1 or HIV-2 infection. Should recent infection be suspected, repeat testing may be considered 2-3 weeks after this draw. [place] Rev. Code 3701.243(E): This information has been disclosed to you from confidential records protected from disclosure by state law. You shall make no further disclosure of this information without the specific, written, and informed release of the individual to whom it pertains or as otherwise permitted by state law. A general authorization for the release of medical or other information is not sufficient for the purpose of the release of HIV test results or diagnoses. [facility] HIV 1 and 2 Ab IA.rapid Nom (S/P/Bld) [facility] Comment on above: Order Comment: Speci men Type: BLOOD SPECIMEN Ordering Facility: [facility] Address: [address] [place] [address] Result Comment: Test not indicated. Performed By: #### T SPN #### [facility] CLIA [id number] [address] [place] [address] [place] HIV 1+2 Ab+HIV1 p24 Ag IA Ql Non-Reactive [facility] Comment on above: Order Comment: Speci men Type: BLOOD SPECIMEN Ordering Facility: [facility] Address: [address] [place] [address] Performed By: #### T SPN #### [facility] CLIA [id number] [address] [place] [address] [place] HIV immunoassay testing algorithm interpretation (S/P/Bld) [Interp] [facility] Comment on above: Order Comment: Speci men Type: BLOOD SPECIMEN Ordering Facility: [facility] Address: [address] [place] [address] Result Comment: No e vidence of HIV-1 or HIV-2 infection. Should recent infection be suspected, repeat testing may be considered 2-3 weeks after this draw. [place] Rev. Code 3701.243(E): This information has been disclosed to you from confidential records protected from disclosure by state law. ???You shall make no further disclosure of this information without the specific, written, and informed release of the individual to whom it pertains or as otherwise permitted by state law. A general authorization for the release of medical or other information is not sufficient for the purpose of the release of HIV test results or diagnoses. Performed By: #### T SPN #### [facility] [place] [id number] [address] [place] [address] [place] HbA1c (Bld)on 06-05-2024 Average glucose Estimated from glycated hemoglobin (Bld) [Mass/Vol] 77 mg/dL [facility] Comment on above: eAG: (Estimated aver age glucose) is a calculated value from HgbA1c and is labor relations representative of the average blood glucose level in the last 2-3 month period. HbA1c (Bld) [Mass fraction] 4.3 % 4.3 - 5.6 % [facility] Comment on above: [place] Diabetes As sociation guidelines indicate that patients with HgbA1c in the range 5.7-6.4% are at increased risk for development of diabetes, and intervention by lifestyle modification may be beneficial. HgbA1c greater or equal to 6.5% is considered diagnostic of diabetes. [facility] Average glucose Estimated from glycated hemoglobin (Bld) [Mass/Vol] 77 mg/dL [facility] Comment on above: Order Comment: Amarilis jonas Type: BLOOD SPECIMEN Ordering Facility: [facility] Address: [address] [place] [address] Result Comment: eAG: (Estimated average glucose) is a calculated value from HgbA1c and is labor relations representative of the average blood glucose level in the last 2-3 month period. Performed By: #### T SPN #### [facility] [id number] [address] [place] [address] [place] HbA1c (Bld) [Mass fraction] 4.3 % [facility] 4.3-5.6 [facility] Comment on above: Order Comment: Amarilis jonas Type: BLOOD SPECIMEN Ordering Facility: [facility] Address: [address] [place] [address] Result Comment: Amer [place] Diabetes Association guidelines indicate that patients with HgbA1c in the range 5.7-6.4% are at increased risk for development of diabetes, and intervention by lifestyle modification may be beneficial. HgbA1c greater or equal to 6.5% is considered diagnostic of diabetes. Performed By: #### T SPN #### [facility] CLIA [id number] [address] [place] [address] PAP TESTon 06-05-2024 ADEQUACY [facility] Comment on above: Order Comment: Speci men Type: FLUID SPECIMEN Ordering Facility: [facility] Address: [address] [place] [address] Result Comment: Sati sfactory for interpretation. Transformation zone present Performed By: #### L [id number] #### [facility] CLIA [id number] [address] [place] [address] LAB CLIA [id number] [address] [place] [address] [place] CASE REPORT [facility] Comment on above: Order Comment: Speci men Type: FLUID SPECIMEN Ordering Facility: [facility] Address: [address] [place] [address] Result Comment: Gyne cologic Cytology Report Case: [id number] Authorizing Provider: Debbie England APRN.CNM Collected: 06/05/2024 09:34 AM Ordering Location: OB/Gynecology Received: 06/05/2024 12:02 PM First Screen: Jp, Sugar, CT, ASCP Specimen: Pap Test, ThinPrep, Cervix Performed By: #### L [id number] #### [facility] CLIA [id number] [address] [place] [address] LAB CLIA [id number] [address] [place] [address] [place] CLINICAL HISTORY, CYTOLOGY, SHEET METAL ROOFER No Menses, Other (Specify) [facility] Comment on above: Order Comment: Speci men Type: FLUID SPECIMEN Ordering Facility: [facility] Address: [address] [place] [address] Result Comment: preg nant Performed By: #### L [id number] #### [facility] CLIA [id number] [address] [place] [address] [place] [facility] CLIA [id number] [address] [place] [address] [place] FINAL PERFORMING LAB [facility] Comment on above: Order Comment: Speci men Type: FLUID SPECIMEN Ordering Facility: [facility] Address: [address] [place] [address] Result Comment: Tech nical component, assistant softball coach screening performed at [facility], [address] [facility], [place] [address] CLIA# [id number] Diagnostic interpretation performed at [facility], [address] [place] [address], [place] [address] CLIA# [id number] Type Disk Quality Control Supervisor: Gabriela Fenton M.D. Performed By: #### L [id number] #### [facility] CLIA [id number] [address] [place] [address] [place] [facility] CLIA [id number] [address] [place] [address] [place] INTERPRETATION, CYTOLOGY, SHEET METAL ROOFER [facility] Comment on above: Order Comment: Speci men Type: FLUID SPECIMEN Ordering Facility: [facility] Address: [address] [place] [address] Result Comment: Nega tive for intraepithelial lesion or malignancy. at 0852 EST Performed By: #### L [id number] #### [facility] CLIA [id number] [address] [place] [address] [place] [facility] CLIA [id number] [address] [place] [address] [place] PAP DISCLAIMER COMMENT The Pap Smear is a screening test for cervical cancer. False negative results occur with all screening tests, emphasizing the need for rescreening at recommended intervals, and clinical correlation. [facility] Comment on above: Order Comment: Speci men Type: FLUID SPECIMEN Ordering Facility: [facility] Address: [address] [place] [address] Performed By: #### L [id number] #### [facility] CLIA [id number] [address] [place] [address] LAB CLIA [id number] [address] [place] [address] [place] PAP OFFICE SUPERVISOR COMMENT This specimen has been analyzed by the ThinPrep Imaging System, an automated imaging and review system, which assists the laboratory in evaluating cells on ThinPrep Pap tests. Following automated imaging, selected shabazz from every slide are reviewed by a assistant softball coach. [facility] Comment on above: Order Comment: Tanyai men Type: FLUID SPECIMEN Ordering Facility: [facility] Address: [address] [place] [address] Performed By: #### L [id number] #### [facility] CLIA [id number] [address] [place] [address] LAB CLIA [id number] [address] [place] [address] OF [place] RUBELLA IGG ANTIBODYon 06-05 Interpretation and review of laboratory results Normal [facility] Rubella IgG, Qual Positive [facility] Comment on above: The result suggests recent or past exposure to Rubella virus or history of Rubella vaccination. Positive result may also be seen due to presence of passively-transferred antibodies. Please correlate with patient's history. [facility] RUBELLA IGG AB, QUAL Positive [facility] Comment on above: Order Comment: [facility] Type: FLUID SPECIMEN Ordering Facility: [facility] Address: [address] [place] [address] Result Comment: The result suggests recent or past exposure to Rubella virus or history of Rubella vaccination. Positive result may also be seen due to presence of passively-transferred antibodies. Please correlate with patient's history. Performed By: #### L [id number] #### [facility] CLIA [id number] [address] [place] [address] [place] [facility] CLIA [id number] [address] [place] [address] [place] Reagin and Treponema pallidu m IgG and IgM [Interp]on 06-05-2024 T. pallidum IgG+IgM IA Ql (S) Non-Reactive Nonreactive [facility] T. pallidum IgG+IgM IA Ql (S) Non-Reactive [facility] Comment on above: Order Comment: Speci men Type: BLOOD SPECIMEN Ordering Facility: [facility] Address: [address] [place] [address] Performed By: #### T SPN #### [facility] CLIA [id number] [address] [place] [address] [place] Reagin+T pallidum IgG+IgM Se rPl-Impon 06-05-2024 Reagin and Treponema pallidum IgG and IgM [Interp] Cannot exclude recent Treponemal infection if specimen collected within 7-10 days after appearance of suspect lesions or 2-3 weeks after an exposure. Clinical correlation is required. [facility] Comment on above: Order Comment: Speci men Type: BLOOD SPECIMEN Ordering Facility: [facility] Address: [address] [place] [address] Performed By: #### T SPN #### [facility] CLIA [id number] [address] [place] [address] [place] SYPHILIS TREPONEMAL W/REFLEX on 06-05-2024 Reagin and Treponema pallidum IgG and IgM [Interp] Cannot exclude recent Treponemal infection if specimen collected within 7-10 days after appearance of suspect lesions or 2-3 weeks after an exposure. Clinical correlation is required. [facility] TYPE + SCREEN PRENATALon ABO group Nom (Bld) A [facility] Blood group antibody screen Ql Negative [facility] Rh Nom (Bld) Positive [facility] Type and Screen Expiration 06/08/2024 23:59 [facility] ABO A [facility] Comment on above: Order Comment: Speci men Type: BLOOD SPECIMEN Ordering Facility: [facility] Address: [address] [place] [address] Performed By: #### T SPN #### [facility] CLIA [id number] [address] [place] [address] OF [place] Rh Nom (Bld) Positive [facility] Comment on above: Order Comment: Speci men Type: BLOOD SPECIMEN Ordering Facility: [facility] Address: [address] [place] [address] Performed By: #### T SPN #### [facility] CLIA [id number] [address] [place] [address] OF [place]ANI TYPE AND SCREEN EXPIRATION 06/08/2024 23:59 [facility] Comment on above: Order Comment: Speci men Type: BLOOD SPECIMEN Ordering Facility: [facility] Address: [address] [place] [address] Performed By: #### T SPN #### [facility] CLIA [id number] [address] [place] [address] OF VANI CNPNon 05-25-2024 CNPN Telephone ([id number]) BEBE FLORES ([id number]) 1995 F Date Time Provider Department 05/25/24 IVONNE HASSAN [id number] During your visit today, we recorded the following information about you: Ivonne Hassan RN 05/25/2024 4:00 PM Signed ----- Message from Ilana Luis sent at 05/25/2024 3:52 PM EST ----- Regarding: TERESO NEW OB GREATER THAN 22 WEEKS Patient has been identified by name and Date of : Yes Patient: Bebe Flores Date of : 1995 Provider for this encounter : [facility] Lara PROCESSING TECHNICIAN Reason for call: TERESO New OB Was an appointment scheduled: No Reason for requesting visit (RFV/signs and symptoms/diagnosis) : >22 weeks gestation Person calling: self Return call to: self Call patient at: [phone] (cell) Payor: [employer] / Plan: CIG[employer] OAP / Product Type: Open Access / Ivonne Laughlin RN 05/25/2024 4:03 PM Signed Call placed to patient to triage for new OB appt. No answer, LMTCB. Ivonne Hassan RN 05/25/2024 4:09 PM Signed Name and verified. Patient wishes to transfer to [facility] for OB care. GENNA? 09/18/2024 - patient had an ultrasound at [facility]. After random test at home Tuesday. No OB care. despite BC. Gestational age? 22w Patient aware to sign up for My Chart so she can receive the home health care physician messages. Any current pelvic pain/vaginal bleeding or any medical concerns that affect the ? No Which office/provider would the patient like to establish in? Lara CO[facility] Will route this encounter to the desired office. Ivonne Covarrubias RN 05/25/2024 4:21 PM Signed Left message for patient to call office to schedule NOB with a nurse assembly room supervisor. Patient will need anatomy US too. First opening for anatomy is 06/13. Please ask patient to have [facility] fax the ultrasound results too. TERELL Marquez Annalee, LPN 05/25/2024 4:42 PM Signed Patient notified. 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 for Visit: Aircraft Dispatcher - Other [3602] Cmt: Initial OB RN CC pool Problem List As Of Date: 05/25/2024 (None) Encounter Status:Closed by BREA COHEN on 05/25/24 [facility] Vital Signs Date Time Vital Sign Value Performing Clinician Lucas mares 09-20-2024 11:15-0400 Body mass index (BMI) [Ratio] 34.9 kg/m2 Ghanshyam Millan MD Work Phone: [facility] 09-20-2024 11:15-0400 Body weight 81.92 kg Ghanshyam Millan MD Work Phone: [facility] 09-20-2024 11:15-0400 Diastolic blood pressure 78 mm[Hg] Ghanshyam Millan MD Work Phone: [facility] 09-20-2024 11:15-0400 Systolic blood pressure 118 mm[Hg] Ghanshyam Millan MD Work Phone: [facility] 09-11-2024 11:27-0400 Body mass index (BMI) [Ratio] 34.44 kg/m2 Sarah Bell MD Work Phone: [facility] 09-11-2024 11:27-0400 Body weight 80.83 kg Sarah Bell MD Work Phone: [facility] 09-11-2024 11:27-0400 Diastolic blood pressure 78 mm[Hg] Sarah Bell MD Work Phone: [facility] 09-11-2024 11:27-0400 Systolic blood pressure 110 mm[Hg] Sarah Bell MD Work Phone: [facility] 09-04-2024 09:31-0400 Body mass index (BMI) [Ratio] 35.37 kg/m2 Gita Back MD Work Phone: [facility] 09-04-2024 09:31-0400 Body weight 83.01 kg Gita Back MD Work Phone: [facility] 09-04-2024 09:31-0400 Diastolic blood pressure 82 mm[Hg] Gita Back MD Work Phone: [facility] 09-04-2024 09:31-0400 Systolic blood pressure 126 mm[Hg] Gita Back MD Work Phone: [facility] 08-22-2024 15:18-0400 Body mass index (BMI) [Ratio] 34.52 kg/m2 Kayli Plotts BUS AND [employer] DISPATCHER.CNM Work Phone: [facility] 08-22-2024 15:18-0400 Body weight 81.01 kg Kayli Plotts [employer] AND [employer] DISPATCHER.CNM Work Phone: [facility] 08-22-2024 15:18-0400 Diastolic blood pressure 78 mm[Hg] Kayli Plotts [employer] AND [employer]OL[employer] DISPATCHER.CNM Work Phone: [facility] 08-22-2024 15:18-0400 Systolic blood pressure 112 mm[Hg] Kayli Plotts BUS AND TROLLEY DISPATCHER.CNM Work Phone: [facility] 08-16-2024 08:04-0400 Body mass index (BMI) [Ratio] 34.59 kg/m2 Kayli Plotts BUS AND [employer]OL[employer] DISPATCHER.CNM Work Phone: [facility] 08-16-2024 08:04-0400 Body weight 81.19 kg Kayli Plotts [employer] AND [employer]OL[employer] DISPATCHER.CNM Work Phone: [facility] 08-16-2024 08:04-0400 Diastolic blood pressure 74 mm[Hg] Kayli Plotts [employer] AND [employer]OLLEY DISPATCHER.CNM Work Phone: [facility] 08-16-2024 08:04-0400 Systolic blood pressure 110 mm[Hg] Kayli Plotts BUS AND [employer]OLLEY DISPATCHER.CNM Work Phone: [facility] 07-30-2024 15:37-0400 Body mass index (BMI) [Ratio] 33.9 kg/m2 Ivonne Palencia MD Work Phone: [facility] 07-30-2024 15:37-0400 Body weight 79.56 kg Ivonne Palencia MD Work Phone: [facility] 07-30-2024 15:37-0400 Diastolic blood pressure 78 mm[Hg] Ivonne Palencia MD Work Phone: [facility] 07-30-2024 15:37-0400 Systolic blood pressure 120 mm[Hg] Ivonne Palencia MD Work Phone: [facility] 07-17-2024 08:27-0400 Body mass index (BMI) [Ratio] 33.05 kg/m2 Gita Back MD Work Phone: [facility] 07-17-2024 08:27-0400 Body weight 77.56 kg Gita Back MD Work Phone: [facility] 07-17-2024 08:27-0400 Diastolic blood pressure 60 mm[Hg] Gita Back MD Work Phone: [facility] 07-17-2024 08:27-0400 Systolic blood pressure 114 mm[Hg] Gita Back MD Work Phone: [facility] 07-03-2024 09:16-0400 Body mass index (BMI) [Ratio] 33.43 kg/m2 Ivonne Palencia MD Work Phone: [facility] 07-03-2024 09:16-0400 Body weight 78.47 kg Ivonne Palencia MD Work Phone: [facility] 07-03-2024 09:16-0400 Diastolic blood pressure 60 mm[Hg] Ivonne Palencia MD Work Phone: [facility] 07-03-2024 09:16-0400 Systolic blood pressure 116 mm[Hg] Ivonne Palencia MD Work Phone: [facility] 06-05-2024 08:52-0500 Body height 153.2 cm Debbie England BUS AND TROLLEY DISPATCHER.CNM Work Phone: [facility] 06-05-2024 08:52-0500 Body mass index (BMI) [Ratio] 32.85 kg/m2 Debbie England BUS AND [employer]OLLEY DISPATCHER.CNM Work Phone: [facility] 06-05-2024 08:52-0500 Body weight 77.11 kg Debbie England BUS AND TROLLEY DISPATCHER.CNM Work Phone: [facility] 06-05-2024 08:52-0500 Diastolic blood pressure 70 mm[Hg] Debbie England APRN.CNM Work Phone: [facility] 06-05-2024 08:52-0500 Systolic blood pressure 120 mm[Hg] Debbie England APRN.CNLiliana Work Phone: [facility] Encounters Encounter Date Encounter Type Care Provider Facility Start: 09-20-2024 End: 09-20-2024 Patient encounter procedure Ghanshyam Millan MD Work Phone: OB/Gynecology Comment on above: Supervision of high risk in third trimester (HCC) (Primary Dx); 40 weeks gestation of (HCC); Obesity in (HCC); Late care (HCC) Start: 09-20-2024 End: 09-20-2024 ambulatory GHANSHYAM MILLAN Facility:[facility] Start: 09-18-2024 ambulatory No Primary Car e Physician Facility:[facility] Start: 09-11-2024 End: 09-11-2024 Patient encounter procedure Sarah Bell MD Work Phone: OB/Gynecology Comment on above: 39 weeks gestation o f (HCC) (Primary Dx); Supervision of high risk in third trimester (HCC); Obesity in (HCC) Start: 09-11-2024 End: 09-11-2024 ambulatory SARAH BELL Facility:[facility] Start: 09-10-2024 End: 09-10[facility] [place] Start: 09-10-2024 End: 09-10-2024 Patient encounter procedure Roz Zamora MA [facility] [place] Comment on above: Population Health Na vigation Outreach (Ob/peds) Start: 09-04-2024 End: 09-04-2024 Patient encounter procedure Gita Back MD Work Phone: OB/Gynecology Comment on above: Supervision of high risk in third trimester (HCC) (Primary Dx); Obesity in (HCC); Late care (HCC); 38 weeks gestation of (HCC) Start: 09-04-2024 End: 09-04-2024 ambulatory GITA BACK Facility:[facility] Start: 08-28-2024 End: 08-28-2024 ambulatory IVONNE PALENCIA Facility:[facility] Start: 08-22-2024 End: 08-22-2024 Patient encounter procedure Kayli Beck OMAM Work Phone: OB/Gynecology Comment on above: 36 weeks gestation o f (HCC) (Primary Dx); Late care (HCC); Supervision of high risk in third trimester (HCC); Obesity in (HCC) Start: 08-22-2024 End: 08-22-2024 ambulatory KAYLI BECK Facility:[facility] Start: 08-16-2024 End: 08-16-2024 Patient encounter procedure Kayli Beck BUS AND [employer]OLLEY DISPATCHER.BRANDONM Work Phone: OB/Gynecology Comment on above: 35 weeks gestation o f (HCC) (Primary Dx); Late care (HCC); Supervision of high risk in third trimester (HCC); Obesity in (HCC) Start: 08-16-2024 End: 08-16-2024 ambulatory KAYLI BECK Facility:[facility] Start: 07-30-2024 End: 07-30-2024 Patient encounter procedure Ivonne Palencia MD Work Phone: OB/Gynecology Comment on above: Supervision of high risk , antepartum (HCC) (Primary Dx); 32 weeks gestation of (HCC); Obesity in (HCC) Start: 07-30-2024 End: 07-30-2024 ambulatory IVONNE PALENCIA Facility:[facility] Start: 07-17-2024 End: 07-17-2024 ambulatory VANESA GONZALES Facility:[facility] Start: 07-17-2024 End: 07-17-2024 Patient encounter procedure Gita Back MD Work Phone: OB/Gynecology Comment on above: Supervision of high risk , antepartum (HCC) (Primary Dx); VSD (ventricular septal defect) (HCC); Obesity in (HCC); Late care (HCC); 31 weeks gestation of (HCC) Encounter for ultras ound to check growth (HCC) (Primary Dx); Late care (HCC); 31 weeks gestation of ([facility]) Start: 07-07-2024 End: 07-12-2024 ambulatory Ivonne Palencia MD Work Phone: OB/Gynecology Comment on above: Heart Murmur Start: 07-05-2024 End: 09-04-2024 Follow-up encounter Ivonne Palencia MD Work Phone: OB/Gynecology Start: 07-04-2024 End: 07-04-2024 ambulatory IVONNE PALENCIA Facility:[facility] Start: 07-03-2024 End: 07-03-2024 ambulatory IVONNE PALENCIA Facility:[facility] Start: 07-03-2024 End: 07-03-2024 Patient encounter procedure Ivonne Palencia MD Work Phone: OB/Gynecology Comment on above: Screening for diabet es mellitus (Primary Dx); Supervision of high risk , antepartum; VSD (ventricular septal defect); Obesity in ; Need for vaccination Start: 06-14-2024 End: 06-14-2024 Telephone encounter Vanesa Gonzales MD Work Phone: OB/Gynecology Comment on above: Needs US & OB appt s cheduled Start: 06-13-2024 End: 06-13-2024 ambulatory IVONNE PALENCIA Facility:[facility] Start: 06-13-2024 End: 06-13-2024 Patient encounter procedure Whi Tech 1 Music Worker [employer] [facility] Comment on above: Encounter for anatomic survey (Primary Dx); 26 weeks gestation of ; Obesity affecting in second trimester, unspecified obesity type Start: 06-11-2024 End: 06-14-2024 Follow-up encounter Debbie England APRN.CNM Work Phone: OB/Gynecology Comment on above: Encounter for ultras ound to assess growth (Primary Dx) Start: 06-06-2024 End: 06-06-2024 ambulatory Debbie England APRN.CNM Work Phone: OB/Gynecology Comment on above: Vitamins Start: 06-05-2024 End: 06-05-2024 ambulatory Debbie England APRN.CNM Work Phone: OB/Gynecology Comment on above: Next appts Start: 06-05-2024 End: 06-05-2024 Patient encounter procedure Debbie England APRN.CNM Work Phone: OB/Gynecology Comment on above: Supervision of high risk , antepartum (Primary Dx); with fetus of unknown gestational age; Screening for cervical cancer; Encounter for screening for human papillomavirus (HPV); Screen for STD (sexually transmitted disease); VSD (ventricular septal defect); Obesity in ; Vaginal discharge; Late care; Currently in first trimester with unknown gestational age; Supervision of high risk in second trimester Start: 05-25-2024 End: 05-25-2024 Telephone encounter Ivonne Hassan RN [facility] Comment on above: Aircraft Dispatcher - O ther (Initial OB RN CC pool/) Procedures Date Procedure Procedure Detail Performing Clinician Start: 09-20-2024 Urnls dip stick/tabl et rgnt non-auto w/o micrscp Ghanshyam Millan MD Work Phone: Start: 09-11-2024 Urnls dip stick/tabl et rgnt non-auto w/o micrscp Sarah Bell MD Work Phone: Start: 09-04-2024 Urnls dip stick/tabl et rgnt non-auto w/o micrscp Gita Back MD Work Phone: Start: 08-22-2024 Urnls dip stick/tabl et rgnt non-auto w/o micrscp Kayli Beck APRN.CNM Work Phone: Start: 07-17-2024 Us preg uterus after 1st trimest 04/11 gestation Vanesa Gonzales MD Work Phone: Start: 06-13-2024 Us preg uterus after 1st trimest 04/11 gestation Debbie England APRN.CNM Work Phone: Start: 06-05-2024 Antibody screen [facility] Comment on above: Order Comment: Speci men Type: BLOOD SPECIMEN Ordering Facility: [facility] Address: [address] [place] [address] Performed By: #### T SPN #### [facility] CLIA [id number] [address] [place] [address] [place] Start: 06-05-2024 BACTERIAL VAGINOSIS NAAT Debbie England APRN.CNM Work Phone: Start: 06-05-2024 Iadna chlamydia trachomatis amplified probe tq Debbie England APRN.CNM Work Phone: Plan of Treatment Date Care Activity Detail Author Start: 2068 RSV Vaccine (1 - 1-d ose 75+ series) RSV Vaccine (1 - 1-dose 75+ series) [facility] Start: 07-03-2034 Urine microalbumin profile DTaP,Tdap,Td Vaccine (3 - Td or Tdap) [facility] Start: 06-05-2029 Screening for malign ant neoplasm of cervix Cervical Cancer Screening [facility] Start: 12-10-2024 Influenza vaccination Influenz a Vaccine (Season Ended) [facility] Start: 09-20-2024 End: 09-20-2024 Patient encounter procedure 09/20/2024 11:10 AM EDT Routine Office Visit OB/Gynecology [address] [place] [id number] Ghanshyam Millan MD [address] [place] [address] OB OB/Gynecology Comment on above: OB Start: 09-11-2024 End: 09-11-2024 Patient encounter procedure 09/11/2024 11:40 AM EDT Routine Office Visit OB/Gynecology [address] [place] [address] Sarah Bell MD [address] [place] [address] OB OB/Gynecology Comment on above: OB Start: 09-04-2024 End: 09-04-2024 Patient encounter procedure 09/04/2024 9:40 AM EDT Routine Office Visit OB/Gynecology [address] [place] [address] Gita Jaimes MD [address] [place] [address] OB OB/Gynecology Comment on above: OB Start: 08-28-2024 End: 08-28-2024 Patient encounter procedure 08/28/2024 8:10 AM EDT Routine Office Visit OB/Gynecology [address] [place] [address] Ivonne Palencia MD [address] [place] [address] OB OB/Gynecology Comment on above: OB Start: 08-22-2024 End: 08-22-2024 Patient encounter procedure 08/22/2024 3:15 PM EDT Routine Office Visit OB/Gynecology [address] [place] [address] Kayli Beck APRN.CN [address] [place] [address] OB OB/Gynecology Comment on above: OB Start: 08-16-2024 End: 08-16-2024 Patient encounter procedure 08/16/2024 8:00 AM EDT Routine Office Visit OB/Gynecology [address] [place] [address] Kayli Beck APRN.CN [address] [place] [address] OB Routine OB/Gynecology Comment on above: OB Routine Start: 07-30-2024 End: 07-30-2024 Patient encounter procedure 07/30/2024 3:50 PM EDT Routine Office Visit OB/Gynecology [address] [place] [address] Ivonne Palencia MD [address] [place] [address] OB OB/Gynecology Comment on above: OB Start: 07-17-2024 End: 07-17-2024 Patient encounter procedure 07/17/2024 8:00 AM EDT Routine Office Visit Maternal Medicine [address] [place] [address] growth- Maternal Medicine Comment on above: growth- Start: 07-04-2024 End: 07-04-2024 ambulatory 07/04/2024 9:00 AM EDT Results Only [place] [facility] [address] [place] [address] Abnormal glucose complicating [O99.810] [place] [facility] Comment on above: Abnormal glucose com plicating [O99.810] Start: 07-03-2024 End: 10-02-2024 ANEMIA REFLEX PANEL [facility] Comment on above: Expected: 07/03/2024 , Expires: 10/02/2024 Start: 07-03-2024 End: 07-03-2025 SYPHILIS TREPONEMAL W/REFLEX [facility] Work Phone: Comment on above: Expected: 07/03/2024 , Expires: 07/03/2025 Start: 07-03-2024 End: 07-03-2024 Patient encounter procedure 07/03/2024 9:00 AM EDT Routine Office Visit OB/Gynecology [address] [place] [address] Ivonne Palencia MD [address] [place] [address] OB OB/Gynecology Comment on above: OB Start: 06-13-2024 End: 06-13-2024 Patient encounter procedure 06/13/2024 10:30 AM EST Routine Office Visit Maternal Medicine [address] [place] [address] anatomy ultrasound Maternal Medicine Comment on above: anatomy ultrasound Start: 06-05-2024 End: 09-04-2024 ANEMIA REFLEX PANEL [facility] Comment on above: Expected: 06/05/2024 , Expires: 09/04/2024 Start: 06-05-2024 End: 06-05-2025 OBSTETRIC ULTRASOUND WHI OBSTETRIC ULTRASOUND WHI Anc Imaging Routine with fetus of unknown gestational age Expected: 06/05/2024, Expires: 06/05/2025 [facility] Comment on above: Expected: 06/05/2024 , Expires: 06/05/2025 Start: 06-05-2024 End: 06-05-2024 Patient encounter procedure 06/05/2024 8:45 AM EST Initial Office Visit OB/Gynecology [address] [place], [place] [id number] Debbie England APRN.CN [address] [place], [place] [address] first ob OB/Gynecology Comment on above: first ob Start: 12-11-2023 Covid-19 Vaccine ( season) Covid-19 Vaccine ( season) [facility] Start: 12-11-2023 Covid-19 Vaccine ( season) Covid-19 Vaccine ( season) [facility] Start: 12-11-2023 Influenza vaccination Influenza Vacc ine (#1) [facility] Start: 2014 Screening for malign ant neoplasm of cervix Cervical Cancer Screening [facility] Start: 2012 Hepatitis B Vaccine (1 of 3 - 19+ 3-dose series) Hepatitis B Vaccine (1 of 3 - 19+ 3-dose series) [facility] Start: 2012 Urine microalbumin profile DTaP,Tdap,Td Vaccine (1 - Tdap) [facility] Start: 2011 Anxiety Screening Anxiety Screening [facility] Start: 2011 Depression Screening Depression Scre ening [facility] Start: 2011 Hepatitis C screening Hepatitis C Sc marilee [facility] Start: 2011 HIV screening HIV Screening [facility] End: 07-10-2025 ECHO ECHO Cardiology Routine VSD (ventricular septal defect) 1 Occurrences starting 07/12/2024 until 07/10/2025 [facility] Work Phone: Comment on above: 1 Occurrences starti ng 07/12/2024 until 07/10/2025 HIGH RISK HUMAN PAPILLOMA VIRUS (HPV), PCR FOR DETECTION AND GENOTYPING HIGH RISK HUMAN PAPILLOMA VIRUS (HPV), PCR FOR DETECTION AND GENOTYPING Lab Routine with fetus of unknown gestational age Screening for cervical cancer Encounter for screening for human papillomavirus (HPV) 06/05/2024 9:34 AM [facility] PAP TEST PAP TEST Lab Rou rohit with fetus of unknown gestational age Screening for cervical cancer Encounter for screening for human papillomavirus (HPV) 06/05/2024 9:34 AM [facility] POC WALLPAPER SCRAPER ULTRASOUND POC WALLPAPER SCRAPER ULTRASO UND Anc Imaging Routine with fetus of unknown gestational age Ordered: 06/05/2024 [facility] Work Phone: Comment on above: Ordered: 06/05/2024 ROUTINE, GR OUP B STREPTOCOCCUS BY PCR ROUTINE, GROUP B STREPTOCOCCUS BY PCR Microbiology Routine 36 weeks gestation of (HCC) Late care (HCC) Supervision of high risk in third trimester (HCC) Obesity in (HCC) 08/22/2024 3:45 PM EDT [facility] Work Phone: Immunizations Immunization Date Immunization Notes Care Provider Guille rico 07-03-2024 tetanus toxoid, redu joana diphtheria toxoid, and acellular pertussis vaccine, adsorbed Ivonne Palencia MD Work Phone: [facility] 03-04-2020 influenza virus vacc ine, unspecified formulation Ivonne Palencia MD Work Phone: [facility] Payers Date Payer Category Payer Self-pay 2024 Private Health Insurance TATIANA brown [id number] 2024 Private Health Insurance [id number] Unknown [id number] Social History Date Type Detail Facility Tobacco smoking stat [facility] Tobacco smoking consumption unknown [facility] Start: 1995 Sex assigned at Not on file [facility] Start: 06-05-2024 End: 09-11-2024 Gender identity Not on file [facility] Start: 06-05-2024 Tobacco smoking stat [facility] Never smoked tobacco [facility] Start: 06-05-2024 Tobacco use and exposure Smoke less tobacco non-user [facility] Start: 06-05-2024 End: 09-11-2024 Alcoholic beverage intake Current drinker of alcohol (finding) [facility] Start: 06-05-2024 End: 09-11-2024 History of Social function [facility] National Score (1-10 0), lower number is lower risk 77 [facility] Start: 06-05-2024 Sexual orientation Heterosexual (valery hooper) [facility] Start: 12-27-2023 [facility] Goals Date Patient Goal Desired Activity /State Personal health goal Clinical Notes 05-25-2024 to 09-20-2024 Quick Notes - Ghanshyam Millan MD - 09/20/2024 11:30 AM EDTPrenatal Quick Notes - Ghanshyam Millan MD - 09/20/2024 11:30 AM EDTPatient InstructionsPatient InstructionsPatient Instructions Note Date & Type Note Facility 09-20-2024 Progress note Formatting of t his note might be different from the original. SW- pt doing well. No ctx, vb, lof. Good FM PE: Gen- NAD, well appearing Abd- Soft, gravid, NT See flowsheet A/p 40 wk gestation - Labor precautions reviewed - R/b/a IOL discussed and consent signed. Patient wants to talk to regarding induction day and will call back. Discussed IOL 41 weeks or elective before - RTO 1 wk Ghanshyam Millan DO [facility] 09-20-2024 Miscellaneous Notes Formattin g of this note might be different from the original. SW- pt doing well. No ctx, vb, lof. Good FM PE: Gen- NAD, well appearing Abd- Soft, gravid, NT See flowsheet A/p 40 wk gestation - Labor precautions reviewed - R/b/a IOL discussed and consent signed. Patient wants to talk to regarding induction day and will call back. Discussed IOL 41 weeks or elective before - RTO 1 wk Ghanshyam Millan DO documented in this encounter [facility] 09-20-2024 Instructions Roz Stevens MA - 09/20/2024 11:15 AM EDT SEQUENTIAL SCREENINGS The [facility] offers sequential screenings for women who are interested in screenings for chromosomal abnormalities and certain defects during a . The sequential screen combines ultrasound and blood tests to determine the risk of chromosomal abnormalities, including Down's Syndrome (Trisomy 21) and Trisomy 18, as well as open neural tube defects including spina bifida. Ultrasound examination is performed between 11 weeks and 13 weeks gestational age. Blood tests are drawn after the ultrasound and again later in the between 15 and 21 weeks gestational age. Please let your physician know if you are interested in this testing. It will require an appointment with our oil change technician. This is not an ultrasound performed by a physician in our office during a routine visit. SIGNS AND SYMPTOMS OF LABOR 1. Contractions every 10 minutes or more often 2. Clear, pink, or brownish fluid (water) leaking from vagina 3. Feeling that baby is pushing down, pressure 4. Low, dull backache 5. Cramps that feel like a period 6. Cramps with or without diarrhea If you notice any of the above symptoms, contact our office at [phone] and ask to speak with a nurse. After hours, you can call doctors registry at [phone] OR call [facility] at [phone] and ask to have the doctor construction scheduler paged. If you consider this an emergency, dial or go to your nearest emergency department. NEED HELP? Are you dealing with a violent or abusive relationship? Are you a victim of rape or sexual assult? Call [facility] ([place]) 24 hour Crisis Hotline: 342.382.5735 or 088-625-5164. MANUAL Your Guide to a Healthy manual is now on-line. Visit [email or web address] to download your free copy documented in this encounter [facility] 09-13-2024 Note HNO ID: [id number] Author: ROZ ZAMORA MA Service: ? Author Type: Commissary Superintendent Type: Progress Notes Filed: 09/13/2024 08:26 Note Text: POPULATION HEALTH NAVIGATION OUTREACH Action/FYI 2nd attempt: Called and left message to call back. Reason for Outreach Medicaid OB/Peds Care Gaps due: N/A Patient Contacted: Unable or unnecessary to reach patient: Unable to reach patient Left message Navigation Signature: Roz Mauricio MA September 13, 2024 8:25 AM [facility] 09-11-2024 Progress note Formatting of t his note might be different from the original. KJ - S: Bebe denies LOF, contractions or vaginal bleeding. O: 39w0d, see flow sheet SENSITIVE EXAM: Sensitive exam not performed. A/P: Assessment & Plan 39 weeks gestation of (HCC) Orders: URINE OB DIP B/O Supervision of high risk in third trimester (HCC) Orders: URINE OB DIP B/O Obesity in (HCC) Orders: URINE OB DIP B/O Reviewed labor & FM precautions Sarah Bell MD [facility] 09-11-2024 Miscellaneous Notes Formattin g of this note might be different from the original. KJ - S: Bebe denies LOF, contractions or vaginal bleeding. O: 39w0d, see flow sheet SENSITIVE EXAM: Sensitive exam not performed. A/P: Assessment & Plan 39 weeks gestation of (HCC) Orders: URINE OB DIP B/O Supervision of high risk in third trimester (HCC) Orders: URINE OB DIP B/O Obesity in (HCC) Orders: URINE OB DIP B/O Reviewed labor & FM precautions Sarah Bell MD documented in this encounter [facility] 09-11-2024 Instructions Roz Stevens MA - 09/11/2024 11:26 AM EDT SEQUENTIAL SCREENINGS The [facility] offers sequential screenings for women who are interested in screenings for chromosomal abnormalities and certain defects during a . The sequential screen combines ultrasound and blood tests to determine the risk of chromosomal abnormalities, including Down's Syndrome (Trisomy 21) and Trisomy 18, as well as open neural tube defects including spina bifida. Ultrasound examination is performed between 11 weeks and 13 weeks gestational age. Blood tests are drawn after the ultrasound and again later in the between 15 and 21 weeks gestational age. Please let your physician know if you are interested in this testing. It will require an appointment with our oil change technician. This is not an ultrasound performed by a physician in our office during a routine visit. SIGNS AND SYMPTOMS OF LABOR 1. Contractions every 10 minutes or more often 2. Clear, pink, or brownish fluid (water) leaking from vagina 3. Feeling that baby is pushing down, pressure 4. Low, dull backache 5. Cramps that feel like a period 6. Cramps with or without diarrhea If you notice any of the above symptoms, contact our office at [phone] and ask to speak with a nurse. After hours, you can call doctors registry at [phone] OR call [facility] at [phone] and ask to have the doctor construction scheduler paged. If you consider this an emergency, dial 9-1-5 or go to your nearest emergency department. NEED HELP? Are you dealing with a violent or abusive relationship? Are you a victim of rape or sexual assult? Call [facility] ([facility] 24 hour Crisis Hotline: 306.920.3879 or 911-471-7549. MANUAL Your Guide to a Healthy manual is now on-line. Visit [email or web address] to download your free copy documented in this encounter [facility] 09-10-2024 Note HNO ID: [id number] Author: ROZ ZAMORA MA Service: ? Author Type: Commissary Superintendent Type: Progress Notes Filed: 09/10/2024 12:21 Note Text: POPULATION HEALTH NAVIGATION OUTREACH Action/ attempt: Called and left message to call back to discuss author. MC message sent. Reason for Outreach Medicaid OB/Peds Care Gaps due: N/A Patient Contacted: Unable or unnecessary to reach patient: Unable to reach patient Left message [employer] message sent Navigation Signature: Roz Mauricio MA September 10, 2024 12:21 PM [facility] 09-10-2024 History of Presen t illness Narrative POPULATION HEALTH NAVIGATION OUTREACH Action/ attempt: Called and left message to call back to discuss author. MC message sent. Reason for Outreach Medicaid OB/Peds Care Gaps due: N/A Patient Contacted: Unable or unnecessary to reach patient: Unable to reach patient Left message [employer] message sent Navigation Signature: Roz Mauricio MA September 10, 2024 12:21 PM documented in this encounter [facility] 09-10-2024 Note Patient Outreach (NE TNAV) BEBE FLORES ([id number]) 1995 F Date Time Provider Department 09/10/24 ROZ ZAMORA During your visit today, we recorded the following information about you: Roz Zamora MA 09/10/2024 12:21 PM Signed POPULATION HEALTH NAVIGATION OUTREACH Action/ attempt: Called and left message to call back to discuss author. MC message sent. Reason for Outreach Medicaid OB/Peds Care Gaps due: N/A Patient Contacted: Unable or unnecessary to reach patient: Unable to reach patient Left message Unifys[employer]t message sent Navigation Signature: Roz Mauricio MA September 10, 2024 12:21 PM Roz Zamora MA 09/13/2024 8:26 AM Signed POPULATION HEALTH NAVIGATION OUTREACH Action/FYI 2nd attempt: Called and left message to call back. Reason for Outreach Medicaid OB/Peds Care Gaps due: N/A Patient Contacted: Unable or unnecessary to reach patient: Unable to reach patient Left message Navigation Signature: Roz Mauricio MA September 13, 2024 8:25 AM Allergies As of Date: 09/10/2024 (No Known Allergies) Date Reviewed: 09/04/2024 Reviewed by: Angelia Lagunas MA - Fully Assessed Reason for Visit: Population Health Navigation Outreach [3910] Cmt: Ob/peds Prescriptions as of 09/13/2024 - aspirin, enteric coated (ECOTRIN LOW STRENGTH) 81 mg EC tablet Take 1 tablet by mouth once daily. - PNV no.95/ferrous fum/folic ac ( ORAL) Take by mouth. Problem List As Of Date 09/10/2024 Noted Resolved VSD (ventricular septal defect) [Q21.0] Supervision of high risk in third tri*06/05/2024 Obesity in [O99.210] 06/05/2024 with fetus of unknown gestational age*06/07/2024 Late care [O09.30] 06/07/2024 Abnormal glucose complicating (HCC) [*07/03/2024 08/22/2024 Encounter Status:Closed by ROZ ZAMORA on 09/10/24 [facility] 09-04-2024 Progress note Formatting of t his note might be different from the original. DM-Pt doing well. Denies vaginal Bleeding, Leaking fluid, or regular Contractions. Pt reports good movement Physical Exam: Gen: female in no apparent distress Abd: soft, Gravid. Non tender to palpation. See flow sheet @ 38 weeks Assessment & Plan Supervision of high risk in third trimester (HCC) Continue PO ASA Orders: URINE OB DIP B/O Obesity in (HCC) Orders: URINE OB DIP B/O Late care (HCC) Orders: URINE OB DIP B/O 38 weeks gestation of (HCC) Kick counts and labor reviewed Rto WEEKLY Orders: URINE OB DIP B/O Gita Neyhart-Back, MD [facility] 09-04-2024 Miscellaneous Notes Formattin g of this note might be different from the original. DM-Pt doing well. Denies vaginal Bleeding, Leaking fluid, or regular Contractions. Pt reports good movement Physical Exam: Gen: female in no apparent distress Abd: soft, Gravid. Non tender to palpation. See flow sheet @ 38 weeks Assessment & Plan Supervision of high risk in third trimester (HCC) Continue PO ASA Orders: URINE OB DIP B/O Obesity in ([facility]) Orders: URINE OB DIP B/O Late care ([facility]) Orders: URINE OB DIP B/O 38 weeks gestation of ([facility]) Kick counts and labor reviewed Rto WEEKLY Orders: URINE OB DIP B/O Gita Henao MD documented in this encounter [facility] 09-04-2024 Instructions Angelia Lagunas MA - 09/04/2024 9:31 AM EDT SEQUENTIAL SCREENINGS The [facility] offers sequential screenings for women who are interested in screenings for chromosomal abnormalities and certain defects during a . The sequential screen combines ultrasound and blood tests to determine the risk of chromosomal abnormalities, including Down's Syndrome (Trisomy 21) and Trisomy 18, as well as open neural tube defects including spina bifida. Ultrasound examination is performed between 11 weeks and 13 weeks gestational age. Blood tests are drawn after the ultrasound and again later in the between 15 and 21 weeks gestational age. Please let your physician know if you are interested in this testing. It will require an appointment with our oil change technician. This is not an ultrasound performed by a physician in our office during a routine visit. SIGNS AND SYMPTOMS OF LABOR 1. Contractions every 10 minutes or more often 2. Clear, pink, or brownish fluid (water) leaking from vagina 3. Feeling that baby is pushing down, pressure 4. Low, dull backache 5. Cramps that feel like a period 6. Cramps with or without diarrhea If you notice any of the above symptoms, contact our office at [phone] and ask to speak with a nurse. After hours, you can call doctors registry at [phone] OR call [facility] at [phone] and ask to have the doctor construction scheduler paged. If you consider this an emergency, dial 9-1-8 or go to your nearest emergency department. NEED HELP? Are you dealing with a violent or abusive relationship? Are you a victim of rape or sexual assult? Call [facility] ([place]) 24 hour Crisis Hotline: 370.100.3101 or 504-208-1334. MANUAL Your Guide to a Healthy manual is now on-line. Visit [email or web address] to download your free copy documented in this encounter [facility] 08-22-2024 Progress note Formatting of t his note might be different from the original. S: Bebe Flores is a 29 year old female who presents at 36 weeks gestation for a routine visit. Some increased back pain. Recommended rn complex care. Positive movements. Denies headache, visual changes, chest pain, shortness of breath, vaginal bleeding, leakage of fluid, or dysuria. Denies any cramps or contractions. O: See flow sheet Gen: No apparent distress Abd: Gravid, nontender TAUS confirms vertex position ASSESSMENT/PLAN: 1. 36 weeks gestation of (HCC) - ICD9: V22.2, ICD10: Z3A.36 (primary diagnosis) 2. Late care ([facility]) 3. Supervision of high risk in third trimester 4. Obesity in - Pregravid BMI 30- no testing - GBS today - Labor precautions and kick counts reviewed - RTO for weekly visits Kayli Beck APRN.CNM [facility] 08-22-2024 Miscellaneous Notes Formattin g of this note might be different from the original. S: Bebe Flores is a 29 year old female who presents at 36 weeks gestation for a routine visit. Some increased back pain. Recommended rn complex care. Positive movements. Denies headache, visual changes, chest pain, shortness of breath, vaginal bleeding, leakage of fluid, or dysuria. Denies any cramps or contractions. O: See flow sheet Gen: No apparent distress Abd: Gravid, nontender TAUS confirms vertex position ASSESSMENT/PLAN: 1. 36 weeks gestation of ([facility]) - ICD9: V22.2, ICD10: Z3A.36 (primary diagnosis) 2. Late care ([facility]) 3. Supervision of high risk in third trimester 4. Obesity in - Pregravid BMI 30- no testing - GBS today - Labor precautions and kick counts reviewed - RTO for weekly visits Kayli Beck APRN.CNM documented in this encounter [facility] 08-22-2024 Instructions Roz Stevens MA - 08/22/2024 3:16 PM EDT SEQUENTIAL SCREENINGS The [facility] offers sequential screenings for women who are interested in screenings for chromosomal abnormalities and certain defects during a . The sequential screen combines ultrasound and blood tests to determine the risk of chromosomal abnormalities, including Down's Syndrome (Trisomy 21) and Trisomy 18, as well as open neural tube defects including spina bifida. Ultrasound examination is performed between 11 weeks and 13 weeks gestational age. Blood tests are drawn after the ultrasound and again later in the between 15 and 21 weeks gestational age. Please let your physician know if you are interested in this testing. It will require an appointment with our oil change technician. This is not an ultrasound performed by a physician in our office during a routine visit. SIGNS AND SYMPTOMS OF LABOR 1. Contractions every 10 minutes or more often 2. Clear, pink, or brownish fluid (water) leaking from vagina 3. Feeling that baby is pushing down, pressure 4. Low, dull backache 5. Cramps that feel like a period 6. Cramps with or without diarrhea If you notice any of the above symptoms, contact our office at [phone] and ask to speak with a nurse. After hours, you can call doctors registry at [phone] OR call [facility] at [phone] and ask to have the doctor construction scheduler paged. If you consider this an emergency, dial 8-0-7 or go to your nearest emergency department. NEED HELP? Are you dealing with a violent or abusive relationship? Are you a victim of rape or sexual assult? Call [facility] ([place]) 24 hour Crisis Hotline: 932.656.1645 or 390-107-9453. MANUAL Your Guide to a Healthy manual is now on-line. Visit [email or web address] to download your free copy documented in this encounter [facility] 08-16-2024 Progress note Formatting of t his note might be different from the original. S: Bebe Flores is a 29 year old female who presents at 35 weeks gestation for a routine visit. Positive movements. Denies headache, visual changes, chest pain, shortness of breath, vaginal bleeding, leakage of fluid, or dysuria. Feeling well, no complaints. O: See flow sheet Gen: No apparent distress Abd: Gravid, nontender ASSESSMENT/PLAN: 1. 35 weeks gestation of 2. Late care 3. Supervision of high risk in third trimester 4. Obesity in - Growth US @ 31 weeks - EFW 53%, AC 69% - Continue ASA / vitamin - Educated on GBS - PTL precautions reviewed and when to call office - RTO 1 week and for weekly visits Kayli Beck APRN.CNM [facility] 08-16-2024 Miscellaneous Notes Formattin g of this note might be different from the original. S: Bebe Flores is a 29 year old female who presents at 35 weeks gestation for a routine visit. Positive movements. Denies headache, visual changes, chest pain, shortness of breath, vaginal bleeding, leakage of fluid, or dysuria. Feeling well, no complaints. O: See flow sheet Gen: No apparent distress Abd: Gravid, nontender ASSESSMENT/PLAN: 1. 35 weeks gestation of 2. Late care 3. Supervision of high risk in third trimester 4. Obesity in - Growth US @ 31 weeks - EFW 53%, AC 69% - Continue ASA / vitamin - Educated on GBS - PTL precautions reviewed and when to call office - RTO 1 week and for weekly visits Kayli Beck APRN.CNM documented in this encounter [facility] 07-30-2024 Progress note Formatting of t his note might be different from the original. S: Bebe Flores is a 29 year old female who presents at 09/18/2024, by Last Menstrual Period for a routine visit. Denies headache, visual changes, chest pain, shortness of breath, vaginal bleeding, leakage of fluid, or dysuria. Feeling well, no complaints. Good movement, No contractions O: See flow sheet Gen: No apparent distress Abd: Gravid, nontender ASSESSMENT/PLAN: 1. Supervision of high risk , antepartum (HCC) - ICD9: V23.9, ICD10: O09.90 (primary diagnosis) 2. 32 weeks gestation of ([facility]) - ICD9: V22.2, ICD10: Z3A.32 PTL precautions 3. Obesity in (HCC) - ICD9: 649.10, ICD10: O99.210 Ivonne Palencia MD [facility] 07-30-2024 Miscellaneous Notes Formattin g of this note might be different from the original. S: Bebe Flores is a 29 year old female who presents at 09/18/2024, by Last Menstrual Period for a routine visit. Denies headache, visual changes, chest pain, shortness of breath, vaginal bleeding, leakage of fluid, or dysuria. Feeling well, no complaints. Good movement, No contractions O: See flow sheet Gen: No apparent distress Abd: Gravid, nontender ASSESSMENT/PLAN: 1. Supervision of high risk , antepartum (HCC) - ICD9: V23.9, ICD10: O09.90 (primary diagnosis) 2. 32 weeks gestation of (HCC) - ICD9: V22.2, ICD10: Z3A.32 PTL precautions 3. Obesity in (HCC) - ICD9: 649.10, ICD10: O99.210 Ivonne Palencia MD documented in this encounter [facility] 07-30-2024 Note HNO ID: [id number] Author: IVONNE PALENCIA MD Service: ? Author Type: Physician Type: Progress Notes Filed: 07/30/2024 16:30 Note Text: [facility] 07-30-2024 History of Presen t illness Narrative documented in this encounter [facility] 07-30-2024 Instructions Roz Stevens MA - 07/30/2024 3:36 PM EDT SEQUENTIAL SCREENINGS The [facility] offers sequential screenings for women who are interested in screenings for chromosomal abnormalities and certain defects during a . The sequential screen combines ultrasound and blood tests to determine the risk of chromosomal abnormalities, including Down's Syndrome (Trisomy 21) and Trisomy 18, as well as open neural tube defects including spina bifida. Ultrasound examination is performed between 11 weeks and 13 weeks gestational age. Blood tests are drawn after the ultrasound and again later in the between 15 and 21 weeks gestational age. Please let your physician know if you are interested in this testing. It will require an appointment with our oil change technician. This is not an ultrasound performed by a physician in our office during a routine visit. SIGNS AND SYMPTOMS OF LABOR 1. Contractions every 10 minutes or more often 2. Clear, pink, or brownish fluid (water) leaking from vagina 3. Feeling that baby is pushing down, pressure 4. Low, dull backache 5. Cramps that feel like a period 6. Cramps with or without diarrhea If you notice any of the above symptoms, contact our office at [phone] and ask to speak with a nurse. After hours, you can call doctors registry at [phone] OR call [facility] at [phone] and ask to have the doctor construction scheduler paged. If you consider this an emergency, dial 7-5-8 or go to your nearest emergency department. NEED HELP? Are you dealing with a violent or abusive relationship? Are you a victim of rape or sexual assult? Call [facility] ([place]) 24 hour Crisis Hotline: 484.450.6071 or 133-395-9331. MANUAL Your Guide to a Healthy manual is now on-line. Visit [email or web address] to download your free copy documented in this encounter [facility] 07-17-2024 Note Indication Evaluation of growth Late care, Maternal obesity, BMI >30 Impression REMOTE READ - Single, live, intrauterine . - The biometry is consistent with the assigned gestational dating. - The EFW is 1770 g, at the 53%. AC is at the 69%. - The amniotic fluid volume is normal amount with an MVP of 5.7 cm and an NANCY of 18.2 cm. - The placenta is posterior, fundal. - No malformations visualized on a limited survey as detailed below. Recommendations Additional follow-up as clinically indicated. Maternal Assessment Height 152 cm Height (ft) 5 ft Physical Exam Initial weight (lb) 160 lb Initial BMI 31.25 kg/m Maternal assessment other: 1 Para 0 Method Transabdominal ultrasound examination Kan . Number of fetuses: 1 Dating GA by prior assessment 31 w + 0 d GENNA by prior assessment: 09/18/2024 Ultrasound examination on: 07/17/2024 GA by U/S based upon: AC, BPD, Femur, HC GA by U/S 31 w + 4 d GENNA by U/S: 09/14/2024 Assigned: based on stated GENNA, selected on 07/17/2024 Assigned GA 31 w + 0 d Assigned GENNA: 09/18/2024 General Evaluation Cardiac activity present. FHR 134 bpm. movements: present. Presentation: cephalic Placenta: Placental site: posterior, fundal Umbilical cord: Cord vessels: 3 vessel cord Amniotic fluid: Amount of AF: normal amount. MVP 5.7 cm. NANCY 18.2 cm. Q1 3.4 cm, Q2 5.1 cm, Q3 4.1 cm, Q4 5.7 cm Growth Overview Exam date GA BPD (mm) HC (mm) AC (mm) FL (mm) HL (mm) EFW (g) 06/13/2024 26w 1d 63.1 21% 249.2 65% 231.7 81% 47.7 57% 46.4 81% 1002 71% 07/17/2024 31w 0d 79.5 68% 299.2 76% 276.7 69% 57.5 31% 1770 53% Biometry Standard BPD 79.5 mm 31w 6d 68% Hadlock OFD 106.8 mm 31w 6d 76% Nicolaides HC 299.2 mm 32w 2d 76% Chhaya AC 276.7 mm 31w 5d 69% Hadlock Femur 57.5 mm 30w 1d 31% Chhaya EFW 1,770 g 31w 1d 53% Hadlock EFW (lb) 3 lb EFW (oz) 14 oz EFW by: Hadlock (HC-AC-FL) Extended Hardboard Factory Worker 3.7 mm Extremities / Bony Struc FL / HC 0.19 Other Structures FHR 134 bpm Anatomy Lateral ventricles: normal Cavum septi pellucidi: normal Cerebellum: normal Cisterna magna: normal 4-chamber view: normal RVOT view: normal LVOT view: normal 3-vessel view: normal Heart / Thorax Situs: situs solitus (normal) Diaphragm: normal Stomach: normal Kidneys: normal Bladder: normal Gender: Unspecified Wants to know sex: no Performed By: Sugar Garcia RDMS, RVT Read By: Evelyn Manjarrez M.D. [facility] 07-17-2024 Note HNO ID: [id number] Author: GITA JAIMES MD Service: ? Author Type: Physician Type: Progress Notes Filed: 07/17/2024 08:41 Note Text: DM-Pt doing well. Denies vaginal Bleeding, Leaking fluid, or regular Contractions. Pt reports good movement Physical Exam: Gen: female in no apparent distress Abd: soft, Gravid. Non tender to palpation. See flow sheet @ 31 weeks Assessment AND Plan Supervision of high risk , antepartum (HCC) VSD (ventricular septal defect) (HCC) Pt declined echo Obesity in (HCC) Growth us pending today Late care (HCC) 31 weeks gestation of ([facility]) RTO 2 weeks Kick alvin reviewed Gita Henao MD [facility] 07-17-2024 History of Presen t illness Narrative DM-Pt doing well. Denies vaginal Bleeding, Leaking fluid, or regular Contractions. Pt reports good movement Physical Exam: Gen: female in no apparent distress Abd: soft, Gravid. Non tender to palpation. See flow sheet @ 31 weeks Assessment & Plan Supervision of high risk , antepartum ([facility]) VSD (ventricular septal defect) ([facility]) Pt declined echo Obesity in ([facility]) Growth us pending today Late care ([facility]) 31 weeks gestation of ([facility]) RTO 2 weeks Anton esquivel reviewed Gita Henao MD documented in this encounter [facility] 07-17-2024 Instructions Shabana Peña MA - 07/17/2024 8:20 AM EDT SEQUENTIAL SCREENINGS The [facility] offers sequential screenings for women who are interested in screenings for chromosomal abnormalities and certain defects during a . The sequential screen combines ultrasound and blood tests to determine the risk of chromosomal abnormalities, including Down's Syndrome (Trisomy 21) and Trisomy 18, as well as open neural tube defects including spina bifida. Ultrasound examination is performed between 11 weeks and 13 weeks gestational age. Blood tests are drawn after the ultrasound and again later in the between 15 and 21 weeks gestational age. Please let your physician know if you are interested in this testing. It will require an appointment with our oil change technician. This is not an ultrasound performed by a physician in our office during a routine visit. SIGNS AND SYMPTOMS OF LABOR 1. Contractions every 10 minutes or more often 2. Clear, pink, or brownish fluid (water) leaking from vagina 3. Feeling that baby is pushing down, pressure 4. Low, dull backache 5. Cramps that feel like a period 6. Cramps with or without diarrhea If you notice any of the above symptoms, contact our office at [phone] and ask to speak with a nurse. After hours, you can call doctors registry at [phone] OR call [facility] at [phone] and ask to have the doctor construction scheduler paged. If you consider this an emergency, dial 9-1-4 or go to your nearest emergency department. NEED HELP? Are you dealing with a violent or abusive relationship? Are you a victim of rape or sexual assult? Call [facility] ([place]) 24 hour Crisis Hotline: 968.711.5727 or 970-973-1543. MANUAL Your Guide to a Healthy manual is now on-line. Visit [email or web address] to download your free copy documented in this encounter [facility] 07-10-2024 Telephone encount er Note Do you want to order echo? Sugar Ryan RN [facility] 07-10-2024 Miscellaneous Notes Formattin g of this note might be different from the original. Do you want to order echo? Sugar Ryan RN documented in this encounter [facility] 07-03-2024 Progress note Formatting of t his note might be different from the original. S: Bebe Flores is a 29 year old female who presents at 09/18/2024, by Last Menstrual Period for a routine visit. Denies headache, visual changes, chest pain, shortness of breath, vaginal bleeding, leakage of fluid, or dysuria. Feeling well, no complaints. Good movement, No contractions O: See flow sheet Gen: No apparent distress Abd: Gravid, nontender Reviewed 28 week labs. Can stop and do at any time Pt would prefer not to do the follow up anatomy as she cannot afford the co pay. Thinking about it ASSESSMENT/PLAN: 1. Screening for diabetes mellitus - ICD9: V77.1, ICD10: Z13.1 (primary diagnosis) - GESTATIONAL GLUCOSE SCREEN, 1-HOUR, 50 GRAM, NON-FASTING 2. Supervision of high risk , antepartum - ICD9: V23.9, ICD10: O09.90 - SYPHILIS TREPONEMAL W/REFLEX - ANEMIA REFLEX PANEL 3. VSD (ventricular septal defect) - ICD9: 745.4, ICD10: Q21.0 4. Obesity in - ICD9: 649.10, ICD10: O99.210 5. Need for vaccination - ICD9: V05.9, ICD10: Z23 TDAP today Ivonne Palencia MD [facility] 07-03-2024 Miscellaneous Notes Formattin g of this note might be different from the original. S: Bebe Flores is a 29 year old female who presents at 09/18/2024, by Last Menstrual Period for a routine visit. Denies headache, visual changes, chest pain, shortness of breath, vaginal bleeding, leakage of fluid, or dysuria. Feeling well, no complaints. Good movement, No contractions O: See flow sheet Gen: No apparent distress Abd: Gravid, nontender Reviewed 28 week labs. Can stop and do at any time Pt would prefer not to do the follow up anatomy as she cannot afford the co pay. Thinking about it ASSESSMENT/PLAN: 1. Screening for diabetes mellitus - ICD9: V77.1, ICD10: Z13.1 (primary diagnosis) - GESTATIONAL GLUCOSE SCREEN, 1-HOUR, 50 GRAM, NON-FASTING 2. Supervision of high risk , antepartum - ICD9: V23.9, ICD10: O09.90 - SYPHILIS TREPONEMAL W/REFLEX - ANEMIA REFLEX PANEL 3. VSD (ventricular septal defect) - ICD9: 745.4, ICD10: Q21.0 4. Obesity in - ICD9: 649.10, ICD10: O99.210 5. Need for vaccination - ICD9: V05.9, ICD10: Z23 TDAP today Ivonne Palencia MD documented in this encounter [facility] 07-03-2024 History of Presen t illness Narrative Patient identified by name and date of . Bebe Flores presents today for a vaccination of Tdap. Patient denies an allergy to latex: yes Patient denies a severe (life-threatening) allergy to a previous dose of Tdap, DTP, DTaP, DT or Td vaccine. No Patient denies history of epilepsy or neurological problems: Yes Patient is afebrile and denies being moderately or severely ill: Yes Patient denies history of Guillain-Bearcreek Syndrome (a severe paralytic illness): Yes Tdap Adacel injection was given without incident. See immunizations for details of immunizations administered today. VIS sheet provided: Yes Provider Ivonne Palencia MD was present in office at time of injection. Marco A Menjivar MA documented in this encounter [facility] 07-03-2024 Note HNO ID: [id number] Author: MARCO A MENJIVAR MA Service: ? Author Type: Commissary Superintendent Type: Progress Notes Filed: 07/03/2024 10:24 Note Text: Patient identified by name and date of . Bebe Flores presents today for a vaccination of Tdap. Patient denies an allergy to latex: yes Patient denies a severe (life-threatening) allergy to a previous dose of Tdap, DTP, DTaP, DT or Td vaccine. No Patient denies history of epilepsy or neurological problems: Yes Patient is afebrile and denies being moderately or severely ill: Yes Patient denies history of Guillain-Bearc[place] Syndrome (a severe paralytic illness): Yes Tdap Adacel injection was given without incident. See immunizations for details of immunizations administered today. VIS sheet provided: Yes Provider Ivonne Palencia MD was present in office at time of injection. Marco A Menjivar MA [facility] 07-03-2024 Instructions Marco A Menjivar MA - 07/03/2024 9:12 AM EDT SEQUENTIAL SCREENINGS The [facility] offers sequential screenings for women who are interested in screenings for chromosomal abnormalities and certain defects during a . The sequential screen combines ultrasound and blood tests to determine the risk of chromosomal abnormalities, including Down's Syndrome (Trisomy 21) and Trisomy 18, as well as open neural tube defects including spina bifida. Ultrasound examination is performed between 11 weeks and 13 weeks gestational age. Blood tests are drawn after the ultrasound and again later in the between 15 and 21 weeks gestational age. Please let your physician know if you are interested in this testing. It will require an appointment with our oil change technician. This is not an ultrasound performed by a physician in our office during a routine visit. SIGNS AND SYMPTOMS OF LABOR 1. Contractions every 10 minutes or more often 2. Clear, pink, or brownish fluid (water) leaking from vagina 3. Feeling that baby is pushing down, pressure 4. Low, dull backache 5. Cramps that feel like a period 6. Cramps with or without diarrhea If you notice any of the above symptoms, contact our office at [phone] and ask to speak with a nurse. After hours, you can call doctors registry at [phone] OR call [facility] at [phone] and ask to have the doctor construction scheduler paged. If you consider this an emergency, dial 9-1-7 or go to your nearest emergency department. NEED HELP? Are you dealing with a violent or abusive relationship? Are you a victim of rape or sexual assult? Call [facility] ([place]) 24 hour Crisis Hotline: 959.623.5385 or 994-444-7151. MANUAL Your Guide to a Healthy manual is now on-line. Visit [email or web address] to download your free copy documented in this encounter [facility] 06-14-2024 Telephone encount er Note Patient scheduled [facility] 06-14-2024 Miscellaneous Notes Formattin g of this note might be different from the original. Patient scheduled Left message for patient to call office. Flor Lucero RN 11:34am US to L&D 06/14/24 1st copy to L&D 06/14/24 OB ultrasound order pended-please file and will contact Pt to get scheduled in 4-6 weeks as advised. Flor Lucero RN Vanesa Gonzales MD 06/14/2024 11:10 AM EST Anatomy ultrasound reviewed. No abnormalities identified. REPEAT US in 4-6 weeks. Please assist w/ scheduling if not done. Please place copy in ob chart. Vanesa Gonzales MD documented in this encounter [facility] 06-14-2024 Telephone encount er Note Left message for patient to call office. Flor Lucero RN [facility] 06-14-2024 Telephone encount er Note See phone encounter dated 06/14/2024. Flor Lucero RN [facility] 06-14-2024 Miscellaneous Notes Formattin g of this note might be different from the original. See phone encounter dated 06/14/2024. Flor Lucero RN US to L&D 06/14/24 1st copy to L&D 06/14/24 OB ultrasound order pended-please file and will contact Pt to get scheduled in 4-6 weeks as advised. Flor Lucero RN Anatomy ultrasound reviewed. No abnormalities identified. REPEAT US in 4-6 weeks. Please assist w/ scheduling if not done. Please place copy in ob chart. Vanesa Gonzales MD documented in this encounter [facility] 06-14-2024 Telephone encount er Note 11:34am US to L&D 06/14/24 1st copy to L&D 06/14/24 OB ultrasound order pended-please file and will contact Pt to get scheduled in 4-6 weeks as advised. Flor Lucero RN [facility] 06-14-2024 Telephone encount er Note Vanesa Gonzales MD 06/14/2024 11:10 AM EST Anatomy ultrasound reviewed. No abnormalities identified. REPEAT US in 4-6 weeks. Please assist w/ scheduling if not done. Please place copy in ob chart. Vanesa Gonzales MD [facility] 06-14-2024 Telephone encount er Note US to L&D 06/14/24 1st copy to L&D 06/14/24 OB ultrasound order pended-please file and will contact Pt to get scheduled in 4-6 weeks as advised. Flor Lucero RN [facility] 06-14-2024 Progress note Formatting of t his note might be different from the original. Anatomy ultrasound reviewed. No abnormalities identified. REPEAT US in 4-6 weeks. Please assist w/ scheduling if not done. Please place copy in ob chart. Vanesa Gonzales MD [facility] Work Phone: 06-06-2024 Telephone encount er Note [facility] 06-06-2024 Miscellaneous Notes Formattin g of this note might be different from the original. documented in this encounter [facility] 06-05-2024 Progress note Formatting of t his note might be different from the original. MATTHIEU-See progress note. Anatomy/dating US for unknown gestational age, approximately 24 wk. Labs ordered. Debbie England APRN.CNM [facility] 06-05-2024 Miscellaneous Notes Formattin g of this note might be different from the original. MATTHIEU-See progress note. Anatomy/dating US for unknown gestational age, approximately 24 wk. Labs ordered. Debbie England APRN.CNM documented in this encounter [facility] 06-05-2024 Instructions Marco A Menjivar MA - 06/05/2024 8:24 AM EST Please select the following link to access the [facility] Your Guide to a Healthy . [email or web address] documented in this encounter [facility] 06-05-2024 Note HNO ID: [id number] Author: DEBBIE ENGLAND APRN.CNM Service: ? Author Type: Livestock Brands Inspector Type: Progress Notes Filed: 06/07/2024 13:08 Note Text: Disaster Recovery Specialist offered: Patient declines. INITIAL OB ASSESSMENT HPI: Bebe is a 29 year old White here to establish Obstetrical Care. No LMP recorded (lmp unknown). Patient is . from OB Dating Form. was unplanned but accepted. Uncertain of first day of last menses. Thinks it was around 22-24wks. [facility] [place] [facility]. US showed GENNA:09/18/24. Complaints: No OB History Gravida1 Para0 Term0 Preterm0 AB0 Living0 SAB0 IAB0 Ectopic0 Multiple0 Live Births0 Previous history: Prior : never History of 4th degree laceration: NA History of shoulder dystocia: No History of Hypertensive disorders including pre-eclampsia or gestational hypertension: NA History of gestational diabetes: NA Patient's Risk Screening for delivery: Have you had a prior kan between 20w and 36w6d? No How many pregnancies have you had before? 0 Did you have a previous baby with a GBS Infection? No Please select all that apply for any prior : N/A MEDICAL/PSYCHOSOCIAL HISTORY: History of hemorrhage or bleeding concerns: No Thyroid Disease: No History of chronic hypertension: No History of pre-existing diabetes: No BMI 32.85 kg/(m2) Last Pap: roughly 5 years ago History of abnormal pap: No Prior treatment for cervical dysplasia: none. Last HPV: n/a History of STDs: N/A Partner History of STDs: None Did you have a partner with Herpes? No Tobacco use: No E-Cigarette/Vaping Use: No Caffeine use: No Drug use: No Alcohol use: Yes Multivitamin with Folic acid: Yes Would refuse blood transfusion if medically necessary: No Social Needs: How often does this describe you? I don't have enough money to pay my bills: Sometimes Within the past 12 months, have you worried that your food would run out before you had money to buy more? Never In the past 12 months, has lack of reliable transportation kept you from going to medical appointments or work, or from getting things needed for daily living? Never In the past 12 months, have you had any concerns about having a place to live, or about the condition or quality of your housing? Never Would you like more information on any of the following (please check all that apply)? Not interested Social History: Do you have any history of depression, anxiety, PTSD, or other mood problems? No Do you have a history of abuse or trauma that may impact your experience? No Are you currently employed? Yes Depression/Anxiety Screening: denies symptoms of depression. OB Depression and Anxiety Screening- This Encounter (since 06/04/2024) Over the past 2 weeks have you felt down, depressed, or hopeless? Negative Over the past two weeks, have you felt little interest or pleasure in doing things?? Negative Feeling nervous, anxious or on edge 0-Not at all Not being able to stop or control worrying 0-Not al all Anxiety Pre-Screening Total (If >/= 3 additional questions will be reviewed) 0 Genetic Screening: Partner present: No Patient verbalized knowledge of partner family health history: No Do you or your partner have any personal or family history of defects not previously discussed: No Do you have history of a complicated by anomaly, genetic condition, or demise: No Preeclampsia Risk Screening: Screening for prevention of preeclampsia: High risk factors: None Moderate risk ractors: Nulliparity, Obesity (body mass index greater than 30), and None OB Risk Screening: Completed, no positive findings documented. 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 No current facility-administered medications for this visit. Allergies As of Date: 06/05/2024 (No Known Allergies) Fully Assessed 06/05/2024 Does patient have penicillin allergy: No REVIEW OF SYSTEMS: GENERAL: Negative for: Fever or Chills HEENT: Negative for: Headache, Impaired Vision, Ringing in Ears, Nosebleeds NECK: Negative for: Swelling, Pain, Stiffness RESPIRATORY: Negative for: Cough, Shortness of breath, Wheezing GASTROINTESTINAL: Negative for: Heartburn, Constipation, Diarrhea, Blood in stool, Vomiting MUSCULOSKELETAL: Negative for: Muscle or joint pain, stiffness, Joint swelling NEUROLOGIC/PSYCHIATRIC: Negative for: Weakness, Paralysis, Numbness, Tingling, Tremor, Anxiety, Depression, Memory loss SKIN: Negative for: Rash, Itching (more content not included)... [facility] History of Presen t illness Narrative Disaster Recovery Specialist offered: Patient declines. INITIAL OB ASSESSMENT HPI: Bebe is a 29 year old White here to establish Obstetrical Care. No LMP recorded (lmp unknown). Patient is . from OB Dating Form. was unplanned but accepted. Uncertain of first day of last menses. Thinks it was around 22-24wks. [facility] [place] [facility] US showed GENNA:09/18/24. Complaints: No OB History Gravida1 Para0 Term0 Preterm0 AB0 Living0 SAB0 IAB0 Ectopic0 Multiple0 Live Births0 Previous history: Prior : never History of 4th degree laceration: NA History of shoulder dystocia: No History of Hypertensive disorders including pre-eclampsia or gestational hypertension: NA History of gestational diabetes: NA Patient's Risk Screening for delivery: Have you had a prior kan between 20w and 36w6d? No How many pregnancies have you had before? 0 Did you have a previous baby with a GBS Infection? No Please select all that apply for any prior : N/A MEDICAL/PSYCHOSOCIAL HISTORY: History of hemorrhage or bleeding concerns: No Thyroid Disease: No History of chronic hypertension: No History of pre-existing diabetes: No BMI 32.85 kg/(m^2) Last Pap: roughly 5 years ago History of abnormal pap: No Prior treatment for cervical dysplasia: none. Last HPV: n/a History of STDs: N/A Partner History of STDs: None Did you have a partner with Herpes? No Tobacco use: No E-Cigarette/Vaping Use: No Caffeine use: No Drug use: No Alcohol use: Yes Multivitamin with Folic acid: Yes Would refuse blood transfusion if medically necessary: No Social Needs: How often does this describe you? I don't have enough money to pay my bills: Sometimes Within the past 12 months, have you worried that your food would run out before you had money to buy more? Never In the past 12 months, has lack of reliable transportation kept you from going to medical appointments or work, or from getting things needed for daily living? Never In the past 12 months, have you had any concerns about having a place to live, or about the condition or quality of your housing? Never Would you like more information on any of the following (please check all that apply)? Not interested Social History: Do you have any history of depression, anxiety, PTSD, or other mood problems? No Do you have a history of abuse or trauma that may impact your experience? No Are you currently employed? Yes Depression/Anxiety Screening: denies symptoms of depression. OB Depression and Anxiety Screening- This Encounter (since 06/04/2024) Over the past 2 weeks have you felt down, depressed, or hopeless? Negative Over the past two weeks, have you felt little interest or pleasure in doing things? Negative Feeling nervous, anxious or on edge 0-Not at all Not being able to stop or control worrying 0-Not al all Anxiety Pre-Screening Total (If >/= 3 additional questions will be reviewed) 0 Genetic Screening: Partner present: No Patient verbalized knowledge of partner family health history: No Do you or your partner have any personal or family history of defects not previously discussed: No Do you have history of a complicated by anomaly, genetic condition, or demise: No Preeclampsia Risk Screening: Screening for prevention of preeclampsia: High risk factors: None Moderate risk ractors: Nulliparity, Obesity (body mass index greater than 30), and None OB Risk Screening: Completed, no positive findings documented. 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 No current facility-administered medications for this visit. Allergies As of Date: 06/05/2024 (No Known Allergies) Fully Assessed 06/05/2024 Does patient have penicillin allergy: No REVIEW OF SYSTEMS: GENERAL: Negative for: Fever or Chills HEENT: Negative for: Headache, Impaired Vision, Ringing in Ears, Nosebleeds NECK: Negative for: Swelling, Pain, Stiffness RESPIRATORY: Negative for: Cough, Shortness of breath, Wheezing GASTROINTESTINAL: Negative for: Heartburn, Constipation, Diarrhea, Blood in stool, Vomiting MUSCULOSKELETAL: Negative for: Muscle or joint pain, stiffness, Joint swelling NEUROLOGIC/PSYCHIATRIC: Negative for: Weakness, Paralysis, Numbness, Tingling, Tremor, Anxiety, Depression, Memory loss SKIN: Negative for: Rash, Itching GENITOURINARY: Negative for: vaginal itching, vaginal discharge, hematuria or dysuria SENSITIVE EXAM: The sensitive examination was discussed with the Patient or Patient's Authorized Graduate Assistant Athletic Trainer. As applicable, any other physician, advance practice provider, medical student, or other health professional student that will be observing or involved in the sensitive examination for educational or training purposes was discussed with the Patient or Authorized Graduate Assistant Athletic Trainer. The Patient or Authorized Graduate Assistant Athletic Trainer has agreed to proceed with the sensitive examination. (Sensitive examination includes inspection and/or palpation of the breasts, pelvis, prostate and anorectal regions). PHYSICAL EXAM: BP 120/70 Ht 5' .315 (1.53m) Wt 170 lb (77.1kg) BMI 32.85 kg/(m^2). GENERAL: pleasant in no apparent distress DERMATOLOGY: Normal, without lesions, non-icteric, and non-hirsute NECK: Supple, full range of motion, no adenopathy, and thyroid normal CHEST: Normal inspiratory effort BREAST: soft, non-tender, symmetric, no dominant mass, normal nipple-areolar complex, no lymphadenopathy, and no nipple discharge ABDOMEN: soft, non-tender, and no masses NEURO: alert and oriented x3,exam grossly non-focal PELVIS: External genitalia normal without lesions. Perineal body intact. No vaginal or cervical lesions. Cervix closed. Uterus 24 week size. No adnexal masses or tenderness. Clinical Pelvimetry: Pelvimetry clinically assessed as adequate Limited OB ultrasound exam: not performed ASSESSMENT: 29 year old at Unknown wks gestational age PLAN: 1) Patient oriented to practice. Patient given new OB orientation folder. Discussed nutrition, folic acid supplementation, dietary guidelines, exercise, smoking, alcohol, caffeine, and drug use. Discussed gestational weight gain guidelines. Discussed routine OB labs including STD/HIV. Reviewed midwifery and senior underwriting assistant services that are available. 2) Screening: Hemoglobin A1C: ordered Baby Aspirin: The patient has been counseled about the potential benefits of low dose aspirin in and our recommendation that this be offered to all patients, regardless of whether they meet the high risk criteria specified above. She Accepts Aneuploidy Screening: Discussed aneuploidy screening, nuchal translucency/first trimester early anatomy ultrasound and NIPT. The risks/benefits and limitations of NIPT/aneuploidy screening were reviewed including the potential for false negative and false positive results. The availability of genetic counseling was reviewed. Information on aneuploidy screening was provided. Uncertain Myriad Carrier Screening: Discussed myriad carrier screening. We discussed the availability of professional-society guided carrier screening and reviewed the conditions screened and limitations of screening. The availability of genetic counseling was reviewed. Information on carrier screening was provided. The patient Declines 3) Patient offered option of Virtual Visits. Patient prefers in person visits. 4) Obesity (BMI >30), will order early glucose screen or Hemoglobin A1C. 5) Late to care, uncertain GENNA. Anatomy US scheduled for next week. Will get all lab work completed today Follow up in 4 weeks or sooner prn. Debbie England APRN.CNM documented in this encounter [facility] 05-25-2024 Telephone encount er Note Patient notified. Appointments scheduled [facility] 05-25-2024 Miscellaneous Notes Formattin g of this note might be different from the original. Patient notified. Appointments scheduled Left message for patient to call office to schedule NOB with a nurse assembly room supervisor. Patient will need anatomy US too. First opening for anatomy is 06/13. Please ask patient to have [facility] fax the ultrasound results too. Ivonne Covarrubias RN Name and verified. Patient wishes to transfer to [facility] for OB care. GENNA? 09/18/2024 - patient had an ultrasound at [facility]. After random test at home Tuesday. No OB care. despite BC. Gestational age? 22w Patient aware to sign up for My Chart so she can receive the home health care physician messages. Any current pelvic pain/vaginal bleeding or any medical concerns that affect the ? No Which office/provider would the patient like to establish in? [facility] Will route this encounter to the desired office. Call placed to patient to triage for new OB appt. No answer, LMTCB. ----- Message from Ilana Luis sent at 05/25/2024 3:52 PM EST ----- Regarding: TERESO NEW OB GREATER THAN 22 WEEKS Patient has been identified by name and Date of : Yes Patient: Bebe Flores Date of : 1995 Provider for this encounter : [facility] PROCESSING TECHNICIAN Reason for call: TEERSO New OB Was an appointment scheduled: No Reason for requesting visit (RFV/signs and symptoms/diagnosis) : >22 weeks gestation Person calling: self Return call to: self Call patient at: [phone] (cell) Payor: [email or web address] / Plan: [employer] OAP / Product Type: Open Access / Ilana Sinclair documented in this encounter [facility] 05-25-2024 Telephone encount er Note Left message for patient to call office to schedule NOB with a nurse assembly room supervisor. Patient will need anatomy US too. First opening for anatomy is 06/13. Please ask patient to have [facility] fax the ultrasound results too. Ivonne Covarrubias RN [facility] 05-25-2024 Telephone encount er Note Name and verified. Patient wishes to transfer to [facility] for OB care. GENNA? 09/18/2024 - patient had an ultrasound at [facility]. After random test at home Tuesday. No OB care. despite BC. Gestational age? 22w Patient aware to sign up for My Chart so she can receive the home health care physician messages. Any current pelvic pain/vaginal bleeding or any medical concerns that affect the ? No Which office/provider would the patient like to establish in? [facility] Will route this encounter to the desired office. [facility] 05-25-2024 Telephone encount er Note Call placed to patient to triage for new OB appt. No answer, LMTCB. 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 TECHNICIAN Reason for call: TERESO New OB Was an appointment scheduled: No Reason for requesting visit (RFV/signs and symptoms/diagnosis) : >22 weeks gestation Person calling: self Return call to: self Call patient at: [phone] (cell) Payor: [email or web address] / Plan: [employer] OAP / Product Type: Marcela Ramirez / Ilana Sinclair [facility] Evaluation note Diagnosis Supervision of high risk , antepartum- Primary with fetus of unknown gestational age Screening for cervical cancer Screening for malignant neoplasm of the cervix Encounter for screening for human papillomavirus (HPV) Special screening examination for human papillomavirus (HPV) Screen for STD (sexually transmitted disease) Screening examination for venereal disease VSD (ventricular septal defect) Ventricular septal defect Obesity in Obesity complicating , childbirth, or the puerperium, unspecified as to episode of care or not applicable Vaginal discharge Leukorrhea, not specified as infective Late care Insufficient care Currently in first trimester with unknown gestational age Supervision of high risk in second trimester Unspecified high-risk [facility] Encounter for anatomic survey- Primary 26 weeks gestation of state, incidental Obesity affecting in second trimester, unspecified obesity type [facility] Encounter for ultrasound to assess growth- Primary documented in this encounter [facility] note* Diagnosis Screening for diabetes mellitus- Primary Supervision of high risk , antepartum VSD (ventricular septal defect) Ventricular septal defect Obesity in Obesity complicating , childbirth, or the puerperium, unspecified as to episode of care or not applicable Need for vaccination Need for prophylactic vaccination and inoculation against unspecified single disease documented in this encounter [facility] note* Diagnosis VSD (ventricular septal defect) (HCC)- Primary Ventricular septal defect [facility] Diagnosis Supervision of high risk , antepartum (HCC)- Primary VSD (ventricular septal defect) (HCC) Ventricular septal defect Obesity in (HCC) Obesity complicating , childbirth, or the puerperium, unspecified as to episode of care or not applicable Late care (HCC) Insufficient care 31 weeks gestation of (HCC) state, incidental * Assessment & Plan Note - Gita Jaimes MD - 07/17/2024 8:41 AM EDT Associated Problem(s): VSD (ventricular septal defect) (HCC) Pt declined echo * Assessment & Plan Note - Gita Jaimes MD - 07/17/2024 8:41 AM EDT Associated Problem(s): Obesity in (HCC) Growth us pending today * Assessment & Plan Note - Gita Jaimes MD - 07/17/2024 8:41 AM EDT Associated Problem(s): Late care (HCC) documented in this encounter [facility] note* Diagnosis Encounter for ultrasound to check growth ([facility])- Primary Encounter for routine screening for malformation using ultrasonics Late care (HCC) Insufficient care 31 weeks gestation of (HCC) state, incidental Supervision of high risk , antepartum (HCC)- Primary VSD (ventricular septal defect) (HCC) Ventricular septal defect Obesity in (HCC) Obesity complicating , childbirth, or the puerperium, unspecified as to episode of care or not applicable Late care (HCC) Insufficient care 31 weeks gestation of (HCC) state, incidental documented in this encounter [facility] note* Diagnosis Supervision of high risk , antepartum (HCC)- Primary VSD (ventricular septal defect) ([facility]) Ventricular septal defect Obesity in (HCC) Obesity complicating , childbirth, or the puerperium, unspecified as to episode of care or not applicable Late care (HCC) Insufficient care 31 weeks gestation of (HCC) state, incidental Supervision of high risk , antepartum (HCC)- Primary 32 weeks gestation of (HCC) state, incidental Obesity in (HCC) Obesity complicating , childbirth, or the puerperium, unspecified as to episode of care or not applicable documented in this encounter [facility] note* Diagnosis Supervision of high risk , antepartum (HCC)- Primary VSD (ventricular septal defect) ([facility]) Ventricular septal defect Obesity in (HCC) Obesity complicating , childbirth, or the puerperium, unspecified as to episode of care or not applicable Late care (HCC) Insufficient care 31 weeks gestation of (HCC) state, incidental 35 weeks gestation of (HCC)- Primary state, incidental Late care ([facility]) Insufficient care Supervision of high risk in third trimester (HCC) Unspecified high-risk Obesity in (HCC) Obesity complicating , childbirth, or the puerperium, unspecified as to episode of care or not applicable documented in this encounter [facility] note* Diagnosis Supervision of high risk , antepartum (HCC)- Primary VSD (ventricular septal defect) (HCC) Ventricular septal defect Obesity in (HCC) Obesity complicating , childbirth, or the puerperium, unspecified as to episode of care or not applicable Late care (HCC) Insufficient care 31 weeks gestation of (HCC) state, incidental 36 weeks gestation of (HCC)- Primary state, incidental Late care (HCC) Insufficient care Supervision of high risk in third trimester (HCC) Unspecified high-risk Obesity in (HCC) Obesity complicating , childbirth, or the puerperium, unspecified as to episode of care or not applicable [facility] Diagnosis Supervision of high risk , antepartum (HCC)- Primary VSD (ventricular septal defect) (HCC) Ventricular septal defect Obesity in (HCC) Obesity complicating , childbirth, or the puerperium, unspecified as to episode of care or not applicable Late care (HCC) Insufficient care 31 weeks gestation of (HCC) state, incidental Supervision of high risk in third trimester (HCC)- Primary Unspecified high-risk Obesity in (HCC) Obesity complicating , childbirth, or the puerperium, unspecified as to episode of care or not applicable Late care (HCC) Insufficient care 38 weeks gestation of (HCC) state, incidental * Assessment & Plan Note - Gita Jaimes MD - 09/04/2024 9:53 AM EDT Associated Problem(s): Supervision of high risk in third trimester (HCC) Continue PO ASA Orders: URINE OB DIP B/O * Assessment & Plan Note - Gita Jaimes MD - 09/04/2024 9:53 AM EDT Associated Problem(s): Obesity in (HCC) Orders: URINE OB DIP B/O * Assessment & Plan Note - Gita Jaimes MD - 09/04/2024 9:53 AM EDT Associated Problem(s): Late care (HCC) Orders: URINE OB DIP B/O documented in this encounter [facility] note* Diagnosis Supervision of high risk , antepartum (HCC)- Primary VSD (ventricular septal defect) (HCC) Ventricular septal defect Obesity in (HCC) Obesity complicating , childbirth, or the puerperium, unspecified as to episode of care or not applicable Late care ([facility]) Insufficient care 31 weeks gestation of (HCC) state, incidental Supervision of high risk in third trimester (HCC)- Primary Unspecified high-risk Obesity in (HCC) Obesity complicating , childbirth, or the puerperium, unspecified as to episode of care or not applicable Late care ([facility]) Insufficient care 38 weeks gestation of (HCC) state, incidental 39 weeks gestation of (HCC)- Primary state, incidental Supervision of high risk in third trimester (HCC) Unspecified high-risk Obesity in (HCC) Obesity complicating , childbirth, or the puerperium, unspecified as to episode of care or not applicable Supervision of high risk in third trimester (HCC)- Primary Unspecified high-risk 40 weeks gestation of (HCC) state, incidental Obesity in (HCC) Obesity complicating , childbirth, or the puerperium, unspecified as to episode of care or not applicable Late care ([facility]) Insufficient care documented in this encounter [facility] note* Diagnosis Supervision of high risk , antepartum (HCC)- Primary VSD (ventricular septal defect) (HCC) Ventricular septal defect Obesity in (HCC) Obesity complicating , childbirth, or the puerperium, unspecified as to episode of care or not applicable Late care ([facility]) Insufficient care 31 weeks gestation of (HCC) state, incidental Supervision of high risk in third trimester (HCC)- Primary Unspecified high-risk Obesity in (HCC) Obesity complicating , childbirth, or the puerperium, unspecified as to episode of care or not applicable Late care (HCC) Insufficient care 38 weeks gestation of (HCC) state, incidental 39 weeks gestation of (HCC)- Primary state, incidental Supervision of high risk in third trimester (HCC) Unspecified high-risk Obesity in (HCC) Obesity complicating , childbirth, or the puerperium, unspecified as to episode of care or not applicable * Assessment & Plan Note - Sarah Bell MD - 09/11/2024 11:44 AM EDTAssociated Problem(s): Supervision of high risk in third trimester (HCC) Orders: URINE OB DIP B/O * Assessment & Plan Note - Sarah Bell MD - 09/11/2024 11:44 AM EDTAssociated Problem(s): Obesity in (HCC) Orders: URINE OB DIP B/O documented in this encounter [facility] Summary Purpose Family History No Family History Records FoundNo Family History Records Found Advance Directives No Advanced Directives Records FoundNo Advanced Directives Records Found Additional Source Comments Source Comments (unrecognize d section and content) In the event this informatio n is protected by the Federal Confidentiality of Alcohol and Drug Abuse Patient Records regulations: The Federal rules restrict any use of the information to criminally investigate or prosecute any alcohol or drug abuse patient.[facility] Center[facility] the event this information is protected by the Federal Confidentiality of Alcohol and Drug Abuse Patient Records regulations: The Federal rules restrict any use of the information to criminally investigate or prosecute any alcohol or drug abuse patient.[facility] Center[facility] the event this information is protected by the Federal Confidentiality of Alcohol and Drug Abuse Patient Records regulations: The Federal rules restrict any use of the information to criminally investigate or prosecute any alcohol or drug abuse patient.[facility] Center[facility] the event this information is protected by the Federal Confidentiality of Alcohol and Drug Abuse Patient Records regulations: The Federal rules restrict any use of the information to criminally investigate or prosecute any alcohol or drug abuse patient.[facility] CenterIn the event this information is protected by the Federal Confidentiality of Alcohol and Drug Abuse Patient Records regulations: The Federal rules restrict any use of the information to criminally investigate or prosecute any alcohol or drug abuse patient.[facility] CenterIn the event this information is protected by the Federal Confidentiality of Alcohol and Drug Abuse Patient Records regulations: The Federal rules restrict any use of the information to criminally investigate or prosecute any alcohol or drug abuse patient.[facility] CenterIn the event this information is protected by the Federal Confidentiality of Alcohol and Drug Abuse Patient Records regulations: The Federal rules restrict any use of the information to criminally investigate or prosecute any alcohol or drug abuse patient.[facility] CenterIn the event this information is protected by the Federal Confidentiality of Alcohol and Drug Abuse Patient Records regulations: The Federal rules restrict any use of the information to criminally investigate or prosecute any alcohol or drug abuse patient.[facility] CenterIn the event this information is protected by the Federal Confidentiality of Alcohol and Drug Abuse Patient Records regulations: The Federal rules restrict any use of the information to criminally investigate or prosecute any alcohol or drug abuse patient.[facility] CenterIn the event this information is protected by the Federal Confidentiality of Alcohol and Drug Abuse Patient Records regulations: The Federal rules restrict any use of the information to criminally investigate or prosecute any alcohol or drug abuse patient.[facility] CenterIn the event this information is protected by the Federal Confidentiality of Alcohol and Drug Abuse Patient Records regulations: The Federal rules restrict any use of the information to criminally investigate or prosecute any alcohol or drug abuse patient.[facility] CenterIn the event this information is protected by the Federal Confidentiality of Alcohol and Drug Abuse Patient Records regulations: The Federal rules restrict any use of the information to criminally investigate or prosecute any alcohol or drug abuse patient.[facility] CenterIn the event this information is protected by the Federal Confidentiality of Alcohol and Drug Abuse Patient Records regulations: The Federal rules restrict any use of the information to criminally investigate or prosecute any alcohol or drug abuse patient.[facility] CenterIn the event this information is protected by the Federal Confidentiality of Alcohol and Drug Abuse Patient Records regulations: The Federal rules restrict any use of the information to criminally investigate or prosecute any alcohol or drug abuse patient.[facility] CenterIn the event this information is protected by the Federal Confidentiality of Alcohol and Drug Abuse Patient Records regulations: The Federal rules restrict any use of the information to criminally investigate or prosecute any alcohol or drug abuse patient.[facility] CenterIn the event this information is protected by the Federal Confidentiality of Alcohol and Drug Abuse Patient Records regulations: The Federal rules restrict any use of the information to criminally investigate or prosecute any alcohol or drug abuse patient.[facility] CenterIn the event this information is protected by the Federal Confidentiality of Alcohol and Drug Abuse Patient Records regulations: The Federal rules restrict any use of the information to criminally investigate or prosecute any alcohol or drug abuse patient.[facility] CenterIn the event this information is protected by the Federal Confidentiality of Alcohol and Drug Abuse Patient Records regulations: The Federal rules restrict any use of the information to criminally investigate or prosecute any alcohol or drug abuse patient.[facility] CenterIn the event this information is protected by the Federal Confidentiality of Alcohol and Drug Abuse Patient Records regulations: The Federal rules restrict any use of the information to criminally investigate or prosecute any alcohol or drug abuse patient.[facility] Reason for Visit (unrecogniz ed section and content) 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 ann Reason Comments US Specialty Diagnoses / Procedures Referred By Contac t Referred To Contact [facility] Diagnoses Currently in first trimester with unknown gestational age Procedures OBSTETRIC ULTRASOUND WHI US PREG UTERUS AFTER 1ST TRIMEST GESTATION Debbie England APRN.SLAVA [address] [place] [address] Phone: tel: fax: [facility] [address] [place] [address] Referral ID Status Reason Start Date Expiration Date V isits Requested Visits Authorized [id number] Closed Auto-Generate d Referral 06/05/2024 06/05/2025 1 1 Reason Comments Needs US & OB appt scheduled Reason Onset Date Comments Care 07/03/2024 Reason Onset Date Comments Care 07/17/2024 Specialty Diagnoses / Procedures Referred By Bishop t Referred To Contact [facility] Diagnoses Supervision of high risk , antepartum (HCC) Late care (HCC) Supervision of high risk in second trimester (HCC) Procedures OBSTETRIC ULTRASOUND WHI US PREG UTERUS AFTER 1ST TRIMEST GESTATION Vanesa Gonzales MD [address] [place] [address] Phone: tel: fax: [facility] [address] [place] [address] Referral ID Status Reason Start Date Expiration Date V isits Requested Visits Authorized [id number] Closed Auto-Generate d Referral 06/14/2024 06/14/2025 1 1 Reason Onset Date Comments Care 07/30/2024 Reason Onset Date Comments Care 08/22/2024 Reason Onset Date Comments Care 09/04/2024 Reason Onset Date Comments Population Health Navigation Outreach 09/10/2024 Ob/peds Reason Onset Date Comments Care 09/20/2024 Reason Onset Date Comments Care 09/11/2024 INFORMATION SOURCE (unrecogn ized section and content) DATE CREATED AUTHOR 08/19/2024 [facility] DATE CREATED AUTHOR AUTHOR'S MARIETTA ATLIZBET 09/23/2024 [facility] FOR RECORDS PERTAINING TO PATIENTS WHO ARE OR HAVE BEEN ENROLLED IN A CHEMICAL DEPENDENCY/SUBSTANCEABUSE PROGRAM, SOME INFORMATION MAY BE OMITTED. This clinical summary was aggregated from multiple sources. Caution should be exercised in using it in the provision of clinical care. This summary normalizes information from multiple sources, and as a consequence, information in this document may materially change the coding, format and clinical context of patient data. In addition, data may be omitted in some cases. CLINICAL DECISIONS SHOULD BE BASED ON THE PRIMARY CLINICAL RECORDS. [facility] [employer] provides no warranty or guarantee of the accuracy or completeness of information in this document.
--- NOTE | 2024-09-26 10:03 | PCM.PN.BLA ---
Progress Note pushing with contractions, Fetus tolerating pushing well. Does have anterior lip but it reduces with pushing.
[2024-09-26] MEDS: Acetaminophen 500 MG Tablet PO (12:44)
[2024-09-26] MEDS: Sodium Citrate/Citric Acid 30 ML UDC PO (12:45)
--- NOTE | 2024-09-26 12:47 | PCM.PN.BLA ---
Progress Note patient pushing x3 hrs- head +2 station still having episodes of prolonged decelerations and variables with pushing- decision to offer vacuum. Pt with good pain control with epidural and Ngo draining. At this time kiwi vacuum placed at flexion point and placed at 550mmhg mercury. with good maternal pushing efforts there was little descent of head from +2 station. 3 pulls were completed with one pop off. discussed with patient Primary cs for arrest of descent at this time.
[2024-09-26] MEDS: Cefazolin 2 GM in 0.9% Normal Saline (100mL Bag) 100 ML IV (12:48)
[2024-09-26] MEDS: TRANEXAMIC ACID 1,000 MG in 0.9% Normal Saline (100mL Bag) 100 ML 440 MG IV (13:01)
[2024-09-26] MEDS: Azithromycin 500 MG in 0.9% Normal Saline (250mL Bag) 250 ML 250 MG IV (13:28)
--- NOTE | 2024-09-26 13:31 | OP.PCM_ITS ---
Maternal Data Information Final GENNA: 09/19/24 Final GENNA Source: US <20 weeks Gestational age: 41 weeks Operative Report (OB) Details Procedure Type: low transverse Date of Procedure: 09/26/24 Procedure Start Time: 13:06 Procedure Stop Time: 13:34 Time of Delivery: 13:08 Pre-Operative Diagnosis: Failure to Progress and Nonreassuring Status Post-Operative Diagnosis: Same as Pre-operative diagnosis Classification: LENKA Type of Anesthesia: Epidural Drain: Ngo to straight drain Estimated Blood Loss: 600 Fluids Replaced: 1000 Findings Description of surgery: After informed consent was obtained the patient was taken the operating room- pillow placed to assist with delivery of head. She was then placed in the supine position. She was prepped and draped in the normal sterile fashion. epidural Anesthesia was found to be adequate. At this time a Pfannenstiel skin incision was made with a knife was carried down to the underlying layer of the fascia. The fascial incision was then extended laterally using latif scissor. Attention was then turned to the superior aspect of the fascial edge was grasped with 2 straight [place] clamps tented up and the rectus muscle dissected off sharply. Rectus muscles were then in the midline bluntly and peritoneum was entered bluntly. Gentle opposing traction was placed. At this time the vesicouterine peritoneum was identified. Scalpel was used to make a uterine incision in a low transverse fashion. Thick meconium noted- The uterus was then entered bluntly gentle opposing traction was placed to extend this incision. 's head was brought to the uterine incision was delivered atraumatically. Infant was attempting to cry at time of delivery. Mouth and nose were suctioned. Cord was clamped and cut infant was handed to the waiting nursery team. The Placenta was removed from the uterus. The uterus was then removed from the abdominal cavity. The uterus was cleared of all clots and debris using a lap. At this time the uterine incision was reapproximated using #1 Vicryl in a running locked fashion. Hemostasis was appreciated. Posterior cul-de-sac was then cleared of all clots and debris. Uterus was placed back in the abdominal cavity. Gutters were cleared of all clots and debris. Uterine incision was reevaluated and noted to be of excellent hemostasis. Hemoblast placed. At this time the peritoneum was grasped with Kellys reapproximated using #2 Vicryl suture in a running fashion. Fascia was then reapproximated using #1 Vicryl in a running fashion. Subcu layer was irrigated with NS, reapproximated with #2 0 plain gut suture in an interrupted fashion. Subcu layer was closed using 4-0 Viryl in a subcu fashion. Dry sterile dressing was applied. Steri strips applied Instrument lap needle count correct ?2. Anticipated normal postoperative course. Surgical findings: normal tubes and ovaries bilaterally Presentation: Vertex Amniotic Membrane Rupture Type: Spontaneous Amniotic Fluid Description: Thick meconium Placental Delivery Description: Expressed Placenta Disposition: [facility] Specimen collected: No Cord Vessel Description: 3 Vessels Cord Entanglement: None Infant A gender: Male (1 minute): 0 (5 minute): 9 Delayed Cord Clamping: No Project Manager Industrial geologist petroleum: Yes Rail Walker: Kris George Tasks completed by investment sales assistant: Opening & closing, Dissecting tissue and Retracting Additional physical laboratory assistant?: No Complications Complications: No
[2024-09-26] MEDS: Oxytocin 15 Units/NS 250ml 15 UNITS/250 ML IV.SOLN 83 UNITS IV (14:00)
[2024-09-26] MEDS: Ketorolac 30 MG/ML Syringe IV ×2 (14:45→23:16)
--- NOTE | 2024-09-26 15:18 | NURSING ---
1515-moderate gush with fundal message. remains firm at U midline
--- NOTE | 2024-09-26 15:36 | NURSING ---
1530- [email or web address] with fundal message, remains firm at U will continue to monitor
[2024-09-26] MEDS: LACTATED RINGERS 500 ML 999 ML IV (16:55)
--- NOTE | 2024-09-26 17:27 | NURSING ---
1700- noted fundus to be slightly lt of midline, u-1.
[2024-09-26] MEDS: Lactated Ringers 1,000 ML 100 ML IV (17:53)
[2024-09-26] MEDS: Acetaminophen 500 MG Tablet 1000 MG PO (20:36)
[2024-09-26] MEDS: Furosemide 20 MG/2 ML VIAL 10 MG IV (20:37)
[2024-09-26 20:38] LABS: Absolute Lymphocyte Count 0.68 X10^3/uL (0.83-4.51); Absolute Neutrophil Count 17.7 X10^3/uL (2.0-7.7); Basophil# 0.01 X10^3/uL; Basophil% 0.1 % (0-1); Hematocrit 25.9 % (37-47); Hemoglobin 8.7 g/dL (12.0-15.0); Lymphocyte # 0.68 X10^3/ul (0.83-4.51); Lymphocyte % 3.5 % (19-41); Mean Corp Hgb Conc 33.6 g/dL (32-36); Mean Corpuscular Hgb 30.9 pg (27.0-32.0); Mean Corpuscular Volume 91.8 fL (81-99); Mean Platelet Vol. 11.5 fl (6.2-12.0); Monocyte# 0.69 X10^3/uL; Monocyte% 3.6 % (0-10); NRBC Flagged by Analyzer 0 % (0-5); Neutrophil # 17.72 X10^3/uL (2.7-7.7); Neutrophil % 92.1 % (47-70); Platelet Count 184 K/mm3 (150-450); RBC Distribution Width CV 12.8 % (11.6-14.6); RBC Distribution Width SD 42.4 fl (35.1-43.9); Red Blood Count 2.82 M/mm3 (4.2-5.4); White Blood Count 19.2 K/mm3 (4.4-11.0)
[2024-09-26 21:28] LABS: Anion Gap 12 (5-15); BUN 11 mg/dL (4-19); BUN/Creat Ratio 14.8 RATIO (10-20); Calcium,Total 8.3 mg/dL (7.6-11.0); Carbon Dioxide 18.2 mmol/L (21.0-32.0); Chloride 106 mmol/L (98-108); Creatinine, Serum 0.71 mg/dL (0.70-1.20); EST Glomerular Filtration Rate 117 (>60); Glucose 148 mg/dL (70-99); Potassium 4.7 mmol/L (3.3-5.1); Sodium Level 137 mmol/L (133-145)
[2024-09-27] VITALS (7 sets, daily range): BP systolic 98–118; BP diastolic 53–79; PULSE 80–107; RESP 16–18; TEMP 36.5–36.8; O2SAT 97–100
[2024-09-27] MEDS: Enoxaparin 40 MG/0.4 ML Syringe SC ×2 (02:20→23:35)
[2024-09-27] MEDS: Acetaminophen 500 MG Tablet 1000 MG PO ×4 (02:20→23:36)
[2024-09-27 06:29] LABS: Hematocrit 21.7 % (37-47); Hemoglobin 7.4 g/dL (12.0-15.0); Mean Corp Hgb Conc 34.1 g/dL (32-36); Mean Corpuscular Hgb 31.2 pg (27.0-32.0); Mean Corpuscular Volume 91.6 fL (81-99); Mean Platelet Vol. 11.7 fl (6.2-12.0); Platelet Count 176 K/mm3 (150-450); RBC Distribution Width CV 13.1 % (11.6-14.6); RBC Distribution Width SD 42.5 fl (35.1-43.9); Red Blood Count 2.37 M/mm3 (4.2-5.4); White Blood Count 17.2 K/mm3 (4.4-11.0)
[2024-09-27] MEDS: Ketorolac 30 MG/ML Syringe IV ×2 (06:30→13:02)
--- NOTE | 2024-09-27 08:26 | PCM.PN.CNM ---
Subjective Subjective Patient seen at bedside. Denies headache, vision changes, SOB or CP. Ambulated to bathroom x 1. Pain is controlled at this time with IV medication. Objective Data Objective Data Vital Signs: Vital Signs Temp Pulse Resp BP Pulse Ox O2 Del Method 97.7 F L 82 18 98/60 98 Room Air 09/27/24 08:00 09/27/24 08:15 09/27/24 08:00 09/27/24 08:00 09/27/24 08:00 09/27/24 08:00 Oxygen Delivery Method Room Air Weight: 183 lb 6.793 oz Body Mass Index (BMI) 35.8 Intake & Output: Intake and Output for Last 24 Hours 09/25/24 09/26/24 09/27/24 23:59 23:59 23:59 Intake Total 32.33 / 32.33 4524.34 / 4524.34 973.33 / 973.33 Output Total 2838 / 2838 Balance 32.33 / 32.33 1686.34 / 1686.34 973.33 / 973.33 Lab / Micro Data Attestation: I reviewed the patient's lab results. 09/27/24 06:20 09/26/24 20:25 Labs: Laboratory Results - last 24 hr 09/26/24 20:25: WBC 19.2 H, RBC 2.82 L, Hgb 8.7 L, Hct 25.9 L, MCV 91.8, MCH 30.9, MCHC 33.6, RDW Std Deviation 42.4, RDW Coeff of Sonal 12.8, Plt Count 184, MPV 11.5, Immature Gran % (Auto) 0.700, Neut % (Auto) 92.1 H, Lymph % (Auto) 3.5 L, [place] % (Auto) 3.6, Eos % (Auto) 0.0, Baso % (Auto) 0.1, Absolute Neuts (auto) 17.7 H, Absolute Lymphs (auto) 0.68 L, Nucleated RBC % 0, Sodium 137, Potassium 4.7, Chloride 106, Carbon Dioxide 18.2 L, Anion Gap 12, BUN 11, Creatinine 0.71, Estim Creat Clear Calc 109.80, Est GFR (MDRD) Non-Af 117, BUN/Creatinine Ratio 14.8, Glucose 148 H, Calcium 8.3 09/27/24 06:20: WBC 17.2 H, RBC 2.37 L, Hgb 7.4 L, Hct 21.7 L, MCV 91.6, MCH 31.2, MCHC 34.1, RDW Std Deviation 42.5, RDW Coeff of Sonal 13.1, Plt Count 176, MPV 11.7 ROS Eyes Eyes: Denies blurry vision, spots in vision or tunnel vision ENT HEENT: Denies dizziness or headache(s) Cardiovascular Cardiovascular: Reports systems reviewed and no addt'l complaints, except as documented, dizziness and dyspnea Respiratory/Chest Respiratory/Chest: Reports systems reviewed and no addt'l complaints, except as documented Gastrointestinal Gastrointestinal: Reports systems reviewed and no addt'l complaints, except as documented Genitourinary Genitourinary: Reports systems reviewed and no addt'l complaints, except as documented Neurologic Neurologic: Denies abnormal speech, dizziness, headache(s), syncope or vertigo Psychiatric Psychiatric: Reports systems reviewed and no addt'l complaints, except as documented Physical Exam Const alert and no apparent distress General Appearance: cooperative Orientation / Consciousness: awake, oriented to person and oriented to place Exam Limitations: no limitations HEENT normocephalic Eyes General Eye: normal appearance of both eyes Neck full ROM Chest Chest: symmetrical chest wall rise Resp normal respiratory effort, normal air movement and clear to auscultation bilaterally Auscultation: clear to auscultation bilaterally Cardio regular rate and regular rhythm GI normal to inspection, nondistended, normoactive bowel sounds Uterus Palpation: uterus fundus firm Extremity full ROM and no calf tenderness Skin no rashes or lesions noted Neuro oriented x3 Psych mental status grossly normal and activity/motor behavior normal Assessment & Plan (1) Status post primary low transverse section: (2) Care and examination of lactating mother: (3) Post-operative pain: (4) Anemia due to blood loss: PLAN: Plan POD 1 Primary C/S HGB 7.4 down from 8.7- IV iron ordered Repeat CBC in AM Increase ambulation support
[2024-09-27] MEDS: 0.9% Saline Lock 10 ML Syringe IV (09:22)
[2024-09-27] MEDS: Iron Sucrose Complex 200 MG in 0.9% Normal Saline (100mL Bag) 100 ML 220 MG IV (09:23)
[2024-09-27] MEDS: SimETHICONE 80 MG Chewable Tablet PO (13:02)
[2024-09-27 15:16] LABS: Absolute Lymphocyte Count 1.79 X10^3/uL (0.83-4.51); Absolute Neutrophil Count 10.5 X10^3/uL (2.0-7.7); Basophil# 0.01 X10^3/uL; Basophil% 0.1 % (0-1); Eosinophil# 0.03 X10^3/uL; Eosinophils% 0.2 % (0-5); Hemoglobin 6.7 g/dL (12.0-15.0); Lymphocyte # 1.79 X10^3/ul (0.83-4.51); Lymphocyte % 13.5 % (19-41); Mean Corp Hgb Conc 33.5 g/dL (32-36); Mean Corpuscular Hgb 31.3 pg (27.0-32.0); Mean Corpuscular Volume 93.5 fL (81-99); Mean Platelet Vol. 11.3 fl (6.2-12.0); Monocyte# 0.88 X10^3/uL; Monocyte% 6.6 % (0-10); NRBC Flagged by Analyzer 0 % (0-5); Neutrophil # 10.49 X10^3/uL (2.7-7.7); Neutrophil % 79.2 % (47-70); Platelet Count 178 K/mm3 (150-450); RBC Distribution Width SD 44.7 fl (35.1-43.9); Red Blood Count 2.14 M/mm3 (4.2-5.4); White Blood Count 13.3 K/mm3 (4.4-11.0)
[2024-09-27] MEDS: Senna/Docusate Sodium 1 Tablet PO (17:54)
[2024-09-27] MEDS: Ibuprofen 600 MG Tablet PO ×2 (17:55→23:36)
--- NOTE | 2024-09-27 19:26 | PN.OBGYN_ITS ---
Subjective Subjective Patient seen at bedside. Denies headache, dizziness, SOB, or CP. Ambulating without difficulty. Hgb 6.7 down from 7.4. Iron transfusion given earlier this morning. Objective Data Objective Data Vital Signs: Vital Signs Temp Pulse Resp BP Pulse Ox O2 Del Method 98.2 F 107 H 18 104/79 97 Room Air 09/27/24 17:58 09/27/24 17:58 09/27/24 17:58 09/27/24 17:58 09/27/24 17:58 09/27/24 17:58 Oxygen Delivery Method Room Air Weight: 183 lb 6.793 oz Body Mass Index (BMI) 35.8 Intake & Output: Intake and Output for Last 24 Hours 09/25/24 09/26/24 09/27/24 23:59 23:59 23:59 Intake Total 32.33 / 32.33 4524.34 / 4524.34 973.33 / 973.33 Output Total 2838 / 2838 Balance 32.33 / 32.33 1686.34 / 1686.34 973.33 / 973.33 Lab / Micro Data 09/27/24 14:55 09/26/24 20:25 Labs: Laboratory Results - last 24 hr 09/26/24 20:25: WBC 19.2 H, RBC 2.82 L, Hgb 8.7 L, Hct 25.9 L, MCV 91.8, MCH 30.9, MCHC 33.6, RDW Std Deviation 42.4, RDW Coeff of Sonal 12.8, Plt Count 184, MPV 11.5, Immature Gran % (Auto) 0.700, Neut % (Auto) 92.1 H, Lymph % (Auto) 3.5 L, [place] % (Auto) 3.6, Eos % (Auto) 0.0, Baso % (Auto) 0.1, Absolute Neuts (auto) 17.7 H, Absolute Lymphs (auto) 0.68 L, Nucleated RBC % 0, Sodium 137, Potassium 4.7, Chloride 106, Carbon Dioxide 18.2 L, Anion Gap 12, BUN 11, Creatinine 0.71, Estim Creat Clear Calc 109.80, Est GFR (MDRD) Non-Af 117, BUN/Creatinine Ratio 14.8, Glucose 148 H, Calcium 8.3 09/27/24 06:20: WBC 17.2 H, RBC 2.37 L, Hgb 7.4 L, Hct 21.7 L, MCV 91.6, MCH 31.2, MCHC 34.1, RDW Std Deviation 42.5, RDW Coeff of Sonal 13.1, Plt Count 176, MPV 11.7 09/27/24 14:55: WBC 13.3 H, RBC 2.14 L, Hgb 6.7 L, Hct 20.0 L, MCV 93.5, MCH 31.3, MCHC 33.5, RDW Std Deviation 44.7 H, RDW Coeff of Sonal 13.0, Plt Count 178, MPV 11.3, Immature Gran % (Auto) 0.400, Neut % (Auto) 79.2 H, Lymph % (Auto) 13.5 L, [place] % (Auto) 6.6, Eos % (Auto) 0.2, Baso % (Auto) 0.1, Absolute Neuts (auto) 10.5 H, Absolute Lymphs (auto) 1.79, Nucleated RBC % 0 Assessment & Plan (1) Anemia due to blood loss: (2) Post-operative pain: (3) Care and examination of lactating mother: (4) Status post primary low transverse section: PLAN: Plan POD 1 Primary C/S Anemia due to blood loss HGB 6.7- patient is asymptomatic Discussed possible transfusion tomorrow if level continues to remain low- patient agrees with plan of care Dr. Ashton aware of A&P
--- NOTE | 2024-09-27 19:37 | NURSING ---
Rn remains at bedside. shine worker and Merchandising Manager contacted and aware PHQ9 score 10 and requires sitter at this time. shine worker will be down to see patient.
--- NOTE | 2024-09-27 19:41 | NURSING ---
[place] the social service liaison now at bedside and provider C Rosaura DALLAS aware.
--- NOTE | 2024-09-27 20:08 | CASEMGMT ---
[facility] SUICIDAL IDEATION Ask questions 1 and 2. If both are negative, proceed to ?Suicidal Behavior? section. If the answer question 2 is yes, ask questions 3, 4, 5.? If the answer to question 1 and/or 2 is ?yes?, complete ?Intensity of Ideation? section below. 1. Wish to be ? Subject endorses thoughts about a wish to be or not alive anymore or wish to fall asleep and not wake up. Have you wished you were or wished you could go to sleep and not wake up? Lifetime: Time He/She [place] Most Suicidal: ?no Past 1 month: no Please Describe if yes: ? 2. Non-Specific Active Suicidal Thoughts General, non-specific thoughts of wanting to end one?s life/commit suicide (e.g., ?I?ve thought about killing myself?) without thoughts of ways to kills oneself/associated methods, intent, or plan during the assessment period.? Have you actually had any thoughts of killing yourself? Lifetime: Time He/She [place] Most Suicidal: ?no Past 1 month: no Please Describe if yes: 3. Active Suicidal Ideation with Any Methods (Not Plan) without Intent to Act Subject endorses thoughts of suicide and has thought of at least one method during the assessment period.? This is different than a specific plan with time, place, or method details worked out (e.g., thought of method to kills self but not a specific plan).? Includes person who would say ?I thought about thanking an overdose, but I never made a specific plan as to when, where or how. I would actually do it, and I would never go through with it.? Have you been thinking about how you might do this? Lifetime: Time He/She [place] Most Suicidal: N/A Past 1 month:? N/A Please Describe if yes: 4. Active Suicidal Ideation with Some Intent to Act, without Specific Plan Active suicidal thoughts of kills oneself fand subject reports having some intent to act on such thoughts, as opposed to ?I have the thoughts but I definitely will not do anything about them.? Have you had these thoughts and had some intention of acting on them? Lifetime: Time He/She [place] Most Suicidal: N/A Past 1 month: N/A Please Describe if yes: 5. Active Suicidal Ideation with Specific Plan and Intent Thoughts of kills oneself with details of plan fully or partially worked out and subject has some intent to care it out. Have you started to work out or worked out the details of how to kill yourself? Do you intend to carry out this plan? Lifetime: Time He/She [place] Most Suicidal: N/A Past 1 month: ???N/A Please Describe if yes: INTENSITY OF IDEATION The following feature should be rated with respect to the most sever type of ideation (i.e., 1-5 from above, with 1 being the least severe and 5 being the most severe). Ask about time he/she/they were feeling the most suicidal.? Lifetime - Most Severe Ideation: Type # (1-5): Description: Recent - Most Severe Ideation: Type # (1-5): Description: Frequency How many times have you had these thoughts? Lifetime: (1) Less than once a week??? (2) Once a week?? (3)? 2-5 times in week??? (4) Daily or almost daily??? (5) Many times each day - N/A Recent, Past 1 month:? (1) Less than once a week??? (2) Once a week?? (3)? 2-5 times in week??? (4) Daily or almost daily??? (5) Many times each day - N/A Duration When you have the thoughts, how long do they last? Lifetime: (1) Fleeting - few seconds or minutes? (2) Less than 1 hour/some of the time? (3) 1-4 hours/a lot of time? 4) 4-8 hours/most of day? (5) More than 8 hours/persistent or continuous Recent, Past 1 month:? (1) Fleeting - few seconds or minutes? (2) Less than 1 hour/some of the time? (3) 1-4 hours/a lot of time? 4) 4-8 hours/most of day? (5) More than 8 hours/persistent or continuous Controllability Could/can you stop thinking about killing yourself or wanting to if you want to? Lifetime:? (1) Easily able to control thoughts?? (2) Can control thoughts with little difficulty??? (3) Can control thoughts with some difficulty??? 4) Can control thoughts with a lot of difficulty? (5) Unable to control thoughts?? (0) Does not attempt to control thoughts Recent, Past 1 month: (1) Easily able to control thoughts?? (2) Can control thoughts with little difficulty??? (3) Can control thoughts with some difficulty??? 4) Can control thoughts with a lot of difficulty? (5) Unable to control thoughts?? (0) Does not attempt to control thoughts Deterrents Are there things - anyone or anything (e.g., family, oriental orthodox, pain of ) - that stopped you from wanting to or acting on thoughts of committing suicide? Lifetime:? (1) Deterrents definitely stopped you from attempting suicide? (2) Deterrents probably stopped you?? (3) Uncertain that deterrents stopped you? (4) Deterrents most likely did not stop you? (5) Deterrents definitely did not stop you?? 0) Does not apply??? Recent:??? (1) Deterrents definitely stopped you from attempting suicide? (2) Deterrents probably stopped you?? (3) Uncertain that deterrents stopped you? (4) Deterrents most likely did not stop you? (5) Deterrents definitely did not stop you?? 0) Does not apply??? Reasons for Ideation What sort of reasons did you have for thinking about wanting to or killing yourself? Was it to end the pain or stop the way you were feeling (in other words you couldn?t go on living with this pain or how you were feeling) or was it to get attention, revenge or a reaction from others? Or both? Lifetime: (1) Completely to get attention, revenge or a reaction from?? (2) Mostly to get attention, revenge or a reaction from others? (3) Equally to get attention, revenge or a reaction from others? and to end/stop the pain?? ( 4) Mostly to end or stop the pain (you couldn?t go on living with the pain or how you were feeling)??? (5) Completely to end or stop the pain (you couldn?t go on living with the pain or? how you were feeling)??? (0)? Does not apply? Recent: (1) Completely to get attention, revenge or a reaction from?? (2) Mostly to get attention, revenge or a reaction from others? (3) Equally to get attention, revenge or a reaction from others? and to end/stop the pain??? (4) Mostly to end or stop the pain (you couldn?t go on living with the pain or how you were feeling)?? (5) Completely to end or stop the pain (you couldn?t go on living with the pain or? how you were feeling)?? (0)? Does not apply? SUICIDAL BEHAVIOR Actual Attempt: A potentially self-injurious act committed with at least some wish to , as a result of act.? Behavior was in part thought of as method to kill oneself.? Intent does not have to be 100%.? If there is any intent/desire to associated with the act, then it can be considered an actual suicide attempt.? There does not have to be any injury of harm, just the potential for injury or harm.? If person pulls trigger while gun is in mouth, but gun is broken so no injury results, this is considered an attempt.? Inferring intent:? Even if an individual denies intent/wish to , it may be inferred clinically from the behavior or circumstances.? For example, a highly lethal act that is clearly not an accident so no other intent but suicide can be inferred (e.g. gunshot to head, jumping from window of a high floor/story).? Also, if someone denies intent to , but they thought that what they did could be lethal, intent may be inferred.? Have you made a suicide attempt? Have you done anything to harm yourself? Have you done anything dangerous where you could have ? What did you do? Did you as a way to end your life? Did you want to (even a little) when you ? Were you trying to end your life when you ? Or did you think it was possible you could have from ? Or did you do it purely for other reasons/without ANY intention of killing yourself like to relieve stress, feel better, get sympathy, or get something else to happen)? (Self -Injurious Behavior without suicidal intent) Lifetime: No Past 3 months: No If yes, describe: Total # of Attempts in His/Her Lifetime: Total # of attempts in Past 3 months: Has person engaged in Non-Suicidal Self-Injurious Behavior? Lifetime: No Past 3 months: No Interrupted Attempt: When the person is interrupted (by an outside circumstance) from starting the potentially self-injurious act (if not for that, actual attempt would have occurred).? Overdose: Person has pills in hand but is stopped from ingesting. Once they ingest any pills, this becomes an attempt rather than an interrupted attempt. Shooting: Person has gun pointed toward self, gun is taken away by someone else, or is somehow prevented from pulling trigger. Once they pull the trigger, even if the gun fails to fire, it is an attempt. Jumping: Person is poised to jump, is grabbed and taken down from ledge.? Hanging: Person has noose around neck but has not yet started to hang self -is stopped from doing so.? Has there been a time when you started to do something to end your life but someone or something stopped you before you did anything? Lifetime: No Past 3 months: No If yes, describe: ? Total # of interrupted attempts in His/Her Lifetime: Total # of interrupted attempts in Past 3 months: Aborted or Self-Interrupted Attempt:? When person begins to take steps toward making a suicide attempt, but stops themselves before they have actually engaged in any self-destructive behavior. Examples are like interrupted attempts, except that the individual stops him/herself, instead of being stopped by something else. Has there been a time when you started to do something to try to end your life, but you stopped yourself before you did anything? Lifetime: No Past 3 months: No If yes, describe: Total # of aborted or self-interrupted attempts in His/Her Lifetime: Total # of aborted or self-interrupted attempts in Past 3 months: Preparatory Acts or Behavior:? Acts or preparation towards imminently making a suicide attempt. This can include anything beyond a verbalization or thought, such as assembling a specific method (e.g., buying pills, purchasing a gun) or preparing for one?s by suicide (e.g., giving things away, writing a suicide note). Have you taken any steps towards making a suicide attempt or preparing to kill yourself (such as collecting pills, getting a gun, giving valuables away or writing a suicide note)? Lifetime: No Past 3 months: No If yes, describe: ? Total # of preparatory acts in His/Her Lifetime: Total # of preparatory acts in Past 3 months: Lethality/Medical Damage:??? 0. No physical damage or very minor physical damage (e.g., surface scratches). 1. Minor physical damage (e.g., lethargic speech; first-degree parra; mild bleeding; sprains). 2. Moderate physical damage; medical attention needed (e.g., conscious but sleepy, somewhat responsive; second-degree parra; bleeding of major vessel). 3. Moderately severe physical damage; medical hospitalization and likely intensive care required (e.g., comatose with reflexes intact; third-degree parra less than 20% of body; extensive blood loss but can recover; major fractures). 4. Severe physical damage; medical hospitalization with intensive care required (e.g., comatose without reflexes; third-degree parra over 20% of body; extensive blood loss with unstable vital signs; major damage to a vital area). 5. Most Recent attempt Date:N/A Code: Most Lethal Attempt Date: Code: Initial/First Attempt Date: Code: Potential Lethality: Only Answer if Actual Lethality=0 Likely lethality of actual attempt if no medical damage (the following examples, while having no actual medical damage, had potential for very serious lethality: put gun in mouth and pulled the trigger but gun fails to fire so no medical damage; laying on train tracks with oncoming train but pulled away before run over). 0 = Behavior not likely to result in injury 1 = Behavior likely to result in injury but not likely to cause 2 = Behavior likely to result in despite available medical care Most Recent Attempt Code:N/A Most Lethal Attempt Code: Initial/First Attempt Code: Plan: SW met with patient, introduced self and role with hospital. Patient agreed to visit. Patient states that she does recognize that she has depressive symptoms and feels that she worries about the future and how she and her will be able to handle all the things that come with being a parent. Patient reports no mental health diagnosis, no current counseling, and no prescribed medications. Patient denies drug or alcohol use. Patient denies any thoughts of self harm, any thoughts of harming other, and any thoughts of harming baby. Patient does admit to having two siblings who have attempted suicide in the past. Sitter is not needed at this time, nursing staff made aware. staying overnight with patient and baby. SW let patient know that she will have another SW visit tomorrow and will be offered resources including counseling services and post information and resources. Savanna Bazan, [employer], FILTER FILLER
--- NOTE | 2024-09-27 20:17 | NURSING ---
RN talked to social work program coordinator jaun. assembly worker said sitter was not needed at this time. assembly worker plans on emaiing social work program coordinator Vida to provide resources to pt prior to discharge.
[2024-09-28 02:37] VITALS: BP 96/73; PULSE 102; RESP 16; TEMP 36.6; O2SAT 98
[2024-09-28] MEDS: Ibuprofen 600 MG Tablet PO ×2 (06:23→11:34)
[2024-09-28] MEDS: Acetaminophen 500 MG Tablet 1000 MG PO ×2 (06:23→11:33)
[2024-09-28 06:33] LABS: Absolute Neutrophil Count 8.5 X10^3/uL (2.0-7.7); Basophil# 0.02 X10^3/uL; Basophil% 0.2 % (0-1); Eosinophil# 0.05 X10^3/uL; Eosinophils% 0.4 % (0-5); Hematocrit 21.4 % (37-47); Lymphocyte % 17.6 % (19-41); Mean Corp Hgb Conc 32.7 g/dL (32-36); Mean Corpuscular Volume 94.7 fL (81-99); Mean Platelet Vol. 10.8 fl (6.2-12.0); Monocyte# 0.76 X10^3/uL; Monocyte% 6.7 % (0-10); NRBC Flagged by Analyzer 0 % (0-5); Neutrophil # 8.46 X10^3/uL (2.7-7.7); Neutrophil % 74.5 % (47-70); Platelet Count 205 K/mm3 (150-450); RBC Distribution Width CV 13.2 % (11.6-14.6); Red Blood Count 2.26 M/mm3 (4.2-5.4); White Blood Count 11.4 K/mm3 (4.4-11.0)
--- NOTE | 2024-09-28 07:22 | DS.PCM_ITS ---
Providers Date of Admission: 09/25/24 Primary Care Physician: Doris Primary Care Phys Reason For Visit: PRIMARY Diagnosis Discharge Diagnosis (1) Anemia due to blood loss: Status: Acute Code(s): D50.0 - Iron deficiency anemia secondary to blood loss (chronic) (2) Post-operative pain: Status: Acute Code(s): G89.18 - Other acute postprocedural pain (3) Care and examination of lactating mother: Status: Acute Code(s): Z39.1 - Encounter for care and examination of lactating mother (4) Status post primary low transverse section: Status: Acute Code(s): Z98.891 - History of uterine scar from previous surgery Plan POD 2 Primary C/S Anemia due to blood loss HGB 7.0- patient is asymptomatic- Taking oral iron and s/p transfusion of iron Desires d/c home See by social work for depression- talked with patient and services offfered. Patient stated has good support system. Denies SI/HI Follow up Tuesday in office Medications at Discharge Home Medications vit no.95-ferrous fumarate 28 mg-folic acid 800 mcg tablet () 1 tab PO DAILY 09/25/24 acetaminophen 500 mg tablet 1,000 mg (2 x 500 mg) PO Q6H #0 tabs 09/28/24 ibuprofen 600 mg tablet 600 mg PO Q6H #0 tabs 09/28/24 sennosides 8.6 mg-docusate sodium 50 mg tablet (Stimulant Laxative Plus) 1 - 2 tab PO DAILY #0 tabs 09/28/24 Hospital Course Operations section Procedures None Summary of Care Provided Minutes Spent on Discharge: 15 Hospital Course: Patient had section. Hospital course was uneventful. Physical Exam Narrative Patient seen in room. Denies dizziness, headache, SOB, CP. Ambulating and voiding without difficulty. Passing flatus. Had BM yesterday. Reports mood is stable at this time. Denies SI/HI. Seen by director of social media marketing. Resources provided. Requesting discharge home later today. Lochia decreased. Dressing dry. Pain controlled with PO medicaitons. Const alert and no apparent distress General Appearance: cooperative and comfortable Exam Limitations: no limitations HEENT normocephalic Eyes General Eye: normal appearance of both eyes Neck full ROM General: normal visual inspection Chest Chest: symmetrical chest wall rise Resp normal respiratory effort and normal air movement Effort and Inspection: symmetric chest movement Auscultation: clear to auscultation bilaterally Cardio regular rate and regular rhythm GI normal to inspection, nondistended, normoactive bowel sounds Back/Spine normal ROM Extremity full ROM and no calf tenderness General Extremity: normal exam except as noted Skin no rashes or lesions noted Wound Narrative: Dressing is dry and intact. Neuro CN's II-XII intact bilaterally Psych mental status grossly normal Weight / BMI Weight Weight: 183 lb 6.793 oz Body Mass Index (BMI) 35.8 ABG / Lab / Microbiology Data 09/28/24 06:15 09/26/24 20:25 Laboratory: Laboratory Results - last 24 hr 09/27/24 14:55: WBC 13.3 H, RBC 2.14 L, Hgb 6.7 L, Hct 20.0 L, MCV 93.5, MCH 31.3, MCHC 33.5, RDW Std Deviation 44.7 H, RDW Coeff of Sonal 13.0, Plt Count 178, MPV 11.3, Immature Gran % (Auto) 0.400, Neut % (Auto) 79.2 H, Lymph % (Auto) 13.5 L, Douglas % (Auto) 6.6, Eos % (Auto) 0.2, Baso % (Auto) 0.1, Absolute Neuts (auto) 10.5 H, Absolute Lymphs (auto) 1.79, Nucleated RBC % 0 09/28/24 06:15: WBC 11.4 H, RBC 2.26 L, Hgb 7.0 L, Hct 21.4 L, MCV 94.7, MCH 31.0, MCHC 32.7, RDW Std Deviation 45.0 H, RDW Coeff of Sonal 13.2, Plt Count 205, MPV 10.8, Immature Gran % (Auto) 0.600, Neut % (Auto) 74.5 H, Lymph % (Auto) 17.6 L, Douglas % (Auto) 6.7, Eos % (Auto) 0.4, Baso % (Auto) 0.2, Absolute Neuts (auto) 8.5 H, Absolute Lymphs (auto) 2.00, Nucleated RBC % 0 D/C Instructions Discharge Diet: No restrictions Discharge Activity: May Drive (2 weeks) and May Shower May resume sexual activity in: 6-8 weeks Weight Bearing Status: Weight bearing as tolerated Lifting Restricted to (Lbs): 25 Call your doctor if your incision/area has: Continuous Slow Oozing, Sudden Increased Bleeding, Increased Pain/ Swelling, Increased Redness, Foul Smelling Discharge and Swelling at the incision site Call your doctor if you observe: Fever of 101 or Higher, Numbness or Tingling, Using more than 1 pad per hour, Shortness of breath, Dizziness, Swelling in the ankles, Chest pain, Calf discomfort and Uncontrolled pain Suture Line Care: Avoid Pulling/Pushing Remove Dressing in: 5 days (Remove yourself or call office and schedule appointment for dressing removal.) DC O2, CPAP, BIPAP Needs Home O2 Discharge instructions: No When: 5 days for dressing removal or 2 weeks for post appointment. Meaningful Use Info Meaningful Use Meaningful Use Diagnoses (Choose all that apply): None applicable Ischemic Stroke Statin Dosing Therapy Reference: STATIN DOSE THERAPY REFERENCE: * Patients > 75 years receive moderate or high dose statin therapy. * Patients 75 years or YOUNGER should receive HIGH intensity statin dose unless contraindicated. You will be required to document reason for non-treatment if statin daily dose does not meet guidelines. HIGH DOSE STATIN THERAPY DAILY Atorvastatin > than or = to 40 mg Rosuvastatin > than or = to 20 mg Amlodipine + Atorvastatin > than or = to 2.5/40 mg Ezetimibe + Simvastatin 10/80 mg Simvastatin 80mg Discharge Plan Admission Admit Date/Time: 09/25/24 19:26 Primary Reason for Your Visit: Labor and Delivery Attending Provider: Gita Henao Primary Care Provider: Care Physician,No Primary Discharge Orders/Prescriptions Prescriptions: New acetaminophen 500 mg Tablet 1,000 mg PO Q6H Qty: 0 0RF sennosides-docusate sodium [Stimulant Laxative Plus] 8.6-50 mg Tablet 1 - 2 tab PO DAILY Qty: 0 0RF ibuprofen 600 mg Tablet 600 mg PO Q6H Qty: 0 0RF Continued PNV cmb#95-ferrous fumarate-FA [] 28 mg iron- 800 mcg tablet 1 tab PO DAILY Discontinued aspirin 81 mg tablet,delayed release (DR/EC) 81 mg PO DAILY Referrals / Follow Up: Kayli Kaplan CNM [Med Staff - Adv Practice Prof] - Care Physician,No Primary [Primary Care Provider] - Disposition Disposition (needs filled in before D/C Order can be placed): Home, Self Care
[2024-09-28 08:30] VITALS: BP 114/65; PULSE 87; RESP 16; TEMP 36.6; O2SAT 98
[2024-09-28] MEDS: Senna/Docusate Sodium 1 Tablet PO (11:34)
[2024-09-28] MEDS: Prenatal Vits Tablet 1 TABLET PO (11:34)
--- NOTE | 2024-09-28 13:09 | CASEMGMT ---
Social Work Assessment Labor and Delivery Unit Patient Address:[address] [place] [address] Phone number: [phone] Date of Referral: 09/28/24 Time of Referral:? 516 Referred By: Kayli Kaplan Date of Intervention: ??09/28/24 Time of Intervention:? 1034 Reason for Referral:? mental health Sw completed chart review and acknowledges social work consult due to maternal mental health. Monty also informed by monty Bazan of conversation she had with mother of baby (MOB- Harleen) yesterday due to concerning PHQ-9 answers MOB provided. Sw presented to bedside and introduced self to MOB and father of baby (FOB- Ady). Sw explained reason for sw involvement and completed psychosocial assessment. Sw also asked FOB to step out of room momentarily while MOB completed [place] Depression Scale. History obtained from: medical records, MOB and FOB Household composition: Currently residing in the family home is MOB and FOB. AMINATA denies that there is anything wrong with the housing, however she does report that she and FOB are not the cleanliest homeowners. MOB states that she knows this is something that they both need to work on, and she hopes that having a baby will encourage them to do better. Patient's parent/guardian status:? ?MOB states that she and FOB have been together for 7 years, for three. MOB states that she and FOB met while previously working together. While meeting with MOB privately MOB denies any domestic violence or intimate partner violence. MOB states that she has been struggling with FOB due to the fact that he has not been helping her with tasks and household responsibilities. MOB reports that she has talked to FOB about this, and hopes that now that baby is here it will force FOB to be more helpful, especially while AMINATA is recovering from her . Medical History: ?AMINATA is 30 year old female who is 1, para 0- now 1 following labor and delivery of . AMINATA received routine are beginning at 5 months of , which is when she discovered that she was . AMINATA states that the was not planned, and she is working on accepting parenthood. AMINATA presented to hospital for induction of labor, and required due to arrest of descent. Baby boy, named Eddi Salamanca, was born weighing 7lb 2oz with apgars of 0 and 9 at one and five minutes of life, respectfully. MOB states that she is breast feeding and baby will be followed by Dr. Decker for pediatrics. Educational Status:? Both parents graduated high school, MOB attended college and PRABHAKAR did not. No problems with reading, learning or comprehension Financial Status: Both parents are gainfully employed outside of the home. FOToby works at [employer] and MOB is a [employer] Teacher at the [employer]. Supplies:??All necessary baby supplies obtained, including: car seat, safe sleep space, clothes, diapers and wipes. Childcare/Caregiver(s):? MOB reports that she will be the primary caregiver along with PRABHAKAR when he is not working. Parents report that they still need to figure out childcare for a couple hours a day when parents have returned to work. Transportation:?? Both parents have their drivers license and reliable means of transportation. No barriers. Programs/Agencies Involved: ???Parents are not connected to any community resources that assist them financially as they are over income. Children Services/Legal Issues:??? No history of children services issues, no problems or concerns warranting referral to be made at this time. - Due to several social concerns (lack of care due to MOB not aware of , home conditions- MOB admitted to being hoarders and she is concerned for when the baby is older, and relationship concerns with PRABHAKAR), and maternal substance use of alcohol during , sw made referral to [facility]. Monty called and spoke to hotline screenerNurys. Behavioral Health Issues: ??Mental Health History:?FOB denies mental health history. MOB denies history of anxiety or depression, but on her PHQ-9 score was a 10. MOB indicated that she has struggled with: little interest in doing things, feeling down/ depressed/ hopeless, trouble falling asleep/staying asleep, feeling bad about herself/ feeling like a failure or a burden to family/ friends, and also indicates that she has had several days of thinking that she would be better off or hurting herself in some way. Monty presented to room and met with MOB last night. MOB discussed several traumas that she has experienced with monty at that time and denied any thoughts or intent of hurting herself. Substance Use History: AMINATA reports to drinking alcohol for the first few months of her due to not knowing that she was . When MOB discovered she was she stopped drinking. AMINATA reports her last drink was in April of 2024. ?? Family History:???MOB denies any family history of substance use or significant mental health diagnoses. ?? Drug Screens: ?No drug screens observed while completing chart review of AMINATA. ? Family/Social Stressors:? AMINATA states that there are several stressors in her life at this time. AMINATA reports that there are some cultural differences between the way that she was brought up and the way that her was raised. AMINATA states that FOB does not help her around the house, and she feels as though he is lazy. MOB states that it is starting to bother her when he does not picker/puller after himself, or help her around the house do daily chores/ responsibilities. AMINATA states that now they are bringing home a baby and she feels as though this is going to add more to her plate. AMINATA states that she was adopted when she was young, and prior to her adoption there were things that happened to her and her family, however she does not remember them. AMINATA reports that her sister will talk about these trauma's but MOB does not remember them, or she thinks that her brain has blocked the memories out. AMINATA states that although she was not trying to get and baby was a surprise she is coming around to recognizing that he is here. MOB states that what she is struggling with is the future. When asked specifically what her concern is, AMINATA stated that she thinks about how their life is going to change and adapt now that baby is here. When asked MOB if she wanted to be a mother, MOB states that she didn't not want to be a mom. Monty asked AMINATA if her adoption has anything to do with her hesitancy, and AMINATA stated that no, her adoption was a good thing and she has good memories and is close with her adopted mom. Support Systems: AMINATA identifies that her mom and her siblings are her biggest supports. PRABHAKAR states that his dad is his biggest support. Depression/Shaken Baby/Safe Sleeping:? Sw educated MOB on signs and symptoms of baby blues and depression and anxiety to be mindful of going into this period. Monty explained to AMINATA that it is important to recognize if she starts to avoid caring for baby or starts to feel a disconnect from him. MOB expressed understanding. MOB reports at this time that she feels a fajardo with baby and has had no problems caring for him. MOB reports that she has also noticed that FOToby is attentive to baby and is excited to be a dad. MOB states that seeing FOB be excited was comforting to her. AMINATA completed an [place] Depression Scale and her score was an 11, which meets the threshold for anxiety or depression. Sw discussed coping skills with MOB. MOB states that talking is helpful at times, but there are times when she does not want to open up to family or friends because she does not want to burden them. Sw encouraged MOB to get connected to a mental health therapist or to talk to her OB about starting a low dose medication to help her manage her mental health symptoms during this period. MOB reports that she would be open to talking to someone, but wants to talk to FOB about it. MOB reports that if she were to struggle with her mental health, FOB would be able to recognize and she hopes that he would know how to help her. Sw educated MOB on shaken baby prevention and ABCs of safe sleep, MOB expressed understanding. ASSESSMENT:? MOB and baby admitted following labor and delivery. MOB delivered baby via unexpected following a she was unaware of until she was reportedly 5 months . MOB states that she and FOB are in a committed relationship and although they wanted to be parents, one day, she anticipated having more time to plan financially before they had children. MOB states that although was not planned, it has now been accepted and she is getting more excited as time goes on and she is learning more about baby. MOB triggered PHQ-9 and completed an [place] Depression Scale. MOB does meet threshold for experiencing some depression and/or anxiety. When discussing this MOB states that she has family and friends that she can talk to, but sometimes chooses not to, and so she is open to getting connected to a mental health professional. MOB states that she would just like to talk to FOB about this so that she can gain his support and assistance with childcare needs. MOB states that she has been more anxious lately with her relationship with FOB because since discovering she is , FOB's living habits have been more bothersome to MOB. MOB states that FOB does not help around the house and although she has tried to talk to him about this, she has noticed a slight improvement. MOB was laying in bed comfortably and was receptive to meeting with sw. Initially both parents were present, however FOB was answering questions and talking over MOB, so sw asked FOB to leave so that sw could speak with MOB privately regarding her mental health, and so MOB could complete an [place]. When FOB left room MOB did open up and engaged more honestly in conversation with sw. MOB denies having thoughts or wants to harm or hurt herself, and also denies any history of. MOB states that she does have some family trauma, that includes the loss of two siblings to suicide. MOB states that maybe the delivery has brought up some traumas that she thought she has processed. Sw encouraged MOB to get connected to a mental health professional to help her process her past trauma, becoming a mom unexpectedly and having a delivery that she had not planned on. Sw explained that a mental health counselor can also help her learn skills on how to have difficult, but important conversations with FOB. MOB expressed understanding. PLAN:? No other services requested or indicated. MOB and baby to be discharged when medically ready. Parents were provided literature regarding: signs and symptoms of baby blues and mood and anxiety disorders, Help Me Grow, shaken baby prevention, ABCs of safe sleep and a list of county resources that are available for them should any needs present themselves. Vida Bansal, [employer], INTERMEDIATE MANAGER
== END 2024-09-28 15:30 | disposition home or self-care (01) | DRG 787 ==
PROVIDERS: Advanced Practice Midwife; Admitting Provider Obstetrics & Gynecology; Referring Provider Obstetrics & Gynecology; Visit Provider Obstetrics & Gynecology
DX: O48.0 Post-term pregnancy (principal); O99.355 Diseases of the nervous system complicating the puerperium; D50.0 Iron deficiency anemia secondary to blood loss (chronic); O64.8XX0 Obstructed labor due to other malposition and malpresentation, not applicable or unspecified; Z37.0 Single live birth; G89.18 Other acute postprocedural pain; O77.0 Labor and delivery complicated by meconium in amniotic fluid; O90.81 Anemia of the puerperium; O61.0 Failed medical induction of labor; O76 Abnormality in fetal heart rate and rhythm complicating labor and delivery; O66.5 Attempted application of vacuum extractor and forceps; Z3A.41 41 weeks gestation of pregnancy; Z79.82 Long term (current) use of aspirin
CPT/HCPCS: 59025; 59050; 80048; 82565; 82570; 83615; 84112; 84156; 84450; 84460; 84550; 85025; 85027; 85610; 85730; 86780; 86850; 86900; 86901; 99221; J1756; A4216; G0378; J1938; J2405